=== PATIENT | male | born 1960 | race Caucasian/White ===

== ENCOUNTER 2019-07-16 07:44 | Inpatient (IN) ==
--- NOTE | 2019-07-16 08:27 | Emergency Department Note ---
Disposition Clinical Impression: Complete heart block Myocardial infarction Qualifiers: Myocardial infarction type: unspecified Involved coronary artery: unspecified coronary artery Qualified Code(s): I21.9 - Acute myocardial infarction, unspe cified Acute renal failure Qualifiers: Acute renal failure type: unspecified Qualified Code(s): N17.9 - Acute kidney failure, unspecified Disposition: Admitted As Inpatient Condition: Critical Time of Disposition: 10:05 Chest Pain HPI - General Chief Complaint: ED Chest Pain Stated Complaint: Chest Pain,"passing out" Time Seen by Provider: 07/16/19 07:48 Source: family Mode of arrival: private vehicle Limitations: no limitations Vital Signs Reviewed: Yes Nursing Notes Reviewed: Yes - History of Present Illness HPI Narrative: 58M with no chronic medical problems that takes no daily medications that reports chest pain since Saturday in the left side of his chest, and anjel upper chest, with radiation into his jaw. Pt has also reported multiple episodes of passing out since the pain started. He describes lightheadedness as well. He also endorses nausea and dry heaves. Pt reports that he did not seek care earlier because he had to work. Pt reports that he normally drinks 4-5 glasses of wine per night, but has not done so since Saturday when this all started. He also smokes a pack per day, but reports decrease in number of cigarettes secondary to symptoms. Severity scale (1-10): 7 - Related Data Allergies Allergy/AdvReac Type Severity Reaction Status Date / Time No Known Allergies Allergy Verified 07/16/19 08:06 Review of Systems: In addition to that documented in the HPI above, the additional ROS was obtained: Constitutional: Denies fevers Reports chills Eyes: Denies vision changes ENMT: Denies sore throat CV: Reports chest pain Resp: Reports SOB GI: Denies vomiting or diarrhea Reports nausea : Denies painful urination MSK: Denies recent trauma Skin: Denies new rashes Neuro: Denies new numbness or tingling Reports new weakness or lightheadedness Chest Pain PMH - Past Medical History Medical history: Reports: non-contributory Psychiatric history: Reports: no psych history - Social History Smoking Status: Current every day smoker Alcohol use: Reports: heavy Drug use: Reports: none Physical Exam General: A&O x 3. No acute distress. Appears uncomfortable. Well developed, well nourished. Lips are pale. Head: atraumatic, normocephalic. ENT: No conjunctival injection, no scleral icterus. PERRLA. EOMI. Oropharynx non- erythematous. mucous membranes moist. Neuro: No focal deficits, no speech deficit, no facial droop, mentating well. BUE/BLE Str 5/5. Pulm: Lungs CTAB A/P. No wheezes, rales, ronchi. Cardio: Bradycardic. Chest not tender to palpation. Abd: Soft, non-distended. Normoactive bowel sounds. Mildly tender to palpation diffusely. No guarding. Non rigid. Extremities: Radial pulses 2+ anjel, dorsalis pedis/posterior tibialis 1+ anjel. No LE edema. Skin: warm, dry, intact. No rashes. Psych: Appropriate mood and affect. Answers questions appropriately. Cooperative with exam. - General Limitations: no limitations General appearance: alert Course Vital Signs Temperature 98.7 F 07/16/19 07:59 Pulse Rate 33 07/16/19 07:59 Respiratory Rate 16 07/16/19 07:59 Blood Pressure 130/71 07/16/19 07:59 O2 Sat by Pulse Oximetry 99 07/16/19 07:59 Temperature 98.9 F 07/16/19 16:20 Pulse Rate 60 07/16/19 13:54 Respiratory Rate 19 07/16/19 13:54 Blood Pressure 117/73 07/16/19 13:54 O2 Sat by Pulse Oximetry 94 07/16/19 13:54 Oxygen Delivery Oxygen Delivery Room Air Chest Pain - [facility] Narrative Medical decision making narrative: 58M with no chronic medical conditions that takes no daily medications but does have 4-5 glasses of wine every day reports chest pain since Saturday with assoc iated nausea and lightheadedness. Initial EKG shows 3rd degree AV block. Cardiology was notified and they requested STAT echo, troponins, and electrolytes. Studies are pending. BP is stable at this time, pt has pads in placed and is connected to defibrillator. 1001: Troponin was elevated at 28.76 and cardiology was again notified. Right- sided EKG was performed which shows continued elevations in II, III, aVF. Cardiology will be evaluating the patient at the bedside. Cardiology evaluated the patient at the bedside and determined that he was a candidate for laboratory geneticist and took him emergently to the laboratory geneticist. He was closely monitored while he was in the department and had pacer pads in place if his vital signs were to change. The patient was informed of relative risks and benefits of the procedure and he gave written consent which was placed on the chart. - Medical Records Medical records reviewed: Yes I reviewed the patient's medical records. - Lab Data Lab results reviewed: Yes I reviewed the patient's lab results. Result diagrams: 07/16/19 08:45 07/16/19 08:45 Lab Results 07/16/19 07/16/19 07/16/19 Range/Units 08:45 08:45 08:45 WBC 11.8 H (4.3-11.1) K/mcL RBC 3.79 L (4.19-5.50) M/mcL Hgb 13.8 (12.9-16.9) g/dL Hct 41.6 (37.5-50.1) % MCV 109.8 H (83.0-100.0) fL MCH 36.4 H (28.0-33.3) pg MCHC 33.2 (31.6-35.5) g/dL RDW 13.7 (11.5-14.5) % Plt Count 163 (140-400) K/mcL MPV 10.8 (9.4-12.4) fL Immature Gran % 0.8 (0-4) % Seg Neutrophils % 72.2 % Lymphocytes % 16.0 % Monocytes % 10.7 % Eosinophils % 0.0 % Basophils % 0.3 % Neutrophils # 8.5 (1.6-8.9) K/mcL Lymphocytes # 1.9 (0.6-4.6) K/mcL Monocytes # 1.3 (0.0-1.3) K/mcL Eosinophils # 0.0 (0.0-0.6) K/mcL Basophils # 0.0 (0.0-0.2) K/mcL Sodium 138 (136-145) mEq/L Potassium 5.2 H (3.5-5.1) mEq/L Chloride 99 (98-107) mEq/L Carbon Dioxide 21 L (23-29) mEq/L BUN 25 H (6-20) mg/dL Creatinine 3.95 H (0.70-1.30) mg/dL Est GFR ( Amer) 19 L (> 60) Est GFR (Non-Af Amer) 16 L (> 60) BUN/Creatinine Ratio 6 (6-26) Glucose 138 H (70-105) mg/dL Calculated Osmolality 293 (280-300) Calcium 9.5 (8.6-10.3) mg/dL Magnesium 2.0 (1.6-2.6) mg/dL Troponin I 28.97 H* (< 0.04) ng/mL TSH 8.726 H (0.340-5.600) mcIU/mL Free T4 0.94 (0.70-2.00) ng/dl - Radiology Data Radiology results reviewed: Yes I reviewed the patient's radiology results. Chest X-Ray 07/16/19 08:28 IMPRESSION: Low lung volumes with bibasilar atelectasis. D/ / Florence Zelaya MD / Florence Zelaya MD Interpreting Provider: Florence Zelaya MD - EKG Data EKG attestation: Yes I reviewed and interpreted this EKG. EKG results narrative: 0754: Heart rate 33, rhythm bradycardic with third-degree AV block, axis normal. QRS 97, QTC 422. There is less than [address] elevation noted in lead 2, 3, aVF. There is constant intermittent ST depression of less than 1 mm in lead V1, and 2 mm in lead V2 with 1 mm in V3. There is no old EKG available for comparison. 0936: Right-sided EKG: HR 28, rhythm AV block with complete dissociation, axis normal. QRS 104, QTc 592 and prolonged. There is elevation in leads 2, 3, aVF. Hyperacute T waves are noted in lead V1. Heart Score - Score History: Highly Suspicious EKG: Significant ST-Depression Age: 45-65 Risk Factors: 1-2 risk factors Troponin: Greater than 3x normal limit HEART Score Total: 8
[2019-07-16 09:11] LABS: Basophils % 0.3 %; Hematocrit 41.6 % (37.5-50.1); Hemoglobin 13.8 g/dL (12.9-16.9); Immature Granulocytes % 0.8 % (0-4); Lymphocytes # 1.9 K/mcL (0.6-4.6); Mean Corpuscular HGB Conc 33.2 g/dL (31.6-35.5); Mean Corpuscular Hemoglobin 36.4 pg (28.0-33.3); Mean Corpuscular Volume 109.8 fL (83.0-100.0); Mean Platelet Volume 10.8 fL (9.4-12.4); Monocytes # 1.3 K/mcL (0.0-1.3); Monocytes % 10.7 %; Neutrophils # 8.5 K/mcL (1.6-8.9); Platelet Count 163 K/mcL (140-400); Red Blood Count 3.79 M/mcL (4.19-5.50); Red Cell Distribution Width 13.7 % (11.5-14.5); Segmented Neutrophils % 72.2 %; White Blood Count 11.8 K/mcL (4.3-11.1)
[2019-07-16 09:44] LABS: Thyroid Stimulating Hormone 8.726 mcIU/mL (0.340-5.600)
[2019-07-16 09:49] LABS: Calcium 9.5 mg/dL (8.6-10.3); Potassium 5.2 mEq/L (3.5-5.1); Troponin I 28.97 ng/mL (< 0.04)
--- NOTE | 2019-07-16 10:03 | Emergency Department Note ---
Disposition Clinical Impression: Complete heart block Myocardial infarction Qualifiers: Myocardial infarction type: unspecified Involved coronary artery: unspecified coronary artery Qualified Code(s): I21.9 - Acute myocardial infarction, unspe cified Acute renal failure Qualifiers: Acute renal failure type: unspecified Qualified Code(s): N17.9 - Acute kidney failure, unspecified Disposition: Admitted As Inpatient Condition: Critical Referrals: Jyoti Rosales [employer] [Advanced Practice Nurse] - Forms: ED Satisfaction Letter Time of Disposition: 10:04 General Adult HPI - General Chief complaint: ED Chest Pain Stated complaint: Chest Pain,"passing out" Time Seen by Provider: 07/16/19 07:48 Source: family Mode of arrival: private vehicle Limitations: no limitations - History of Present Illness Pain Scale: 6 - Related Data Allergies Allergy/AdvReac Type Severity Reaction Status Date / Time No Known Allergies Allergy Verified 07/16/19 08:06 Past Medical History - Past Medical History Medical history: Reports: non-contributory Psychiatric history: Reports: no psych history - Social History Smoking Status: Current every day smoker Smokeless Tobacco Status: No Alcohol use: Reports: heavy Drug use: Reports: none Physical Exam - General Limitations: no limitations General appearance: alert Course Vital Signs Temperature 98.7 F 07/16/19 07:59 Pulse Rate 33 07/16/19 07:59 Respiratory Rate 16 07/16/19 07:59 Blood Pressure 130/71 07/16/19 07:59 O2 Sat by Pulse Oximetry 99 07/16/19 07:59 Temperature 98.7 F 07/16/19 07:59 Pulse Rate 29 07/16/19 09:23 Respiratory Rate 18 07/16/19 09:23 Blood Pressure 103/64 07/16/19 09:23 O2 Sat by Pulse Oximetry 93 07/16/19 09:23 Oxygen Delivery Oxygen Delivery Room Air Medical Decision Making - Lab Data Result diagrams: 07/16/19 08:45 07/16/19 08:45 Lab Results 07/16/19 07/16/19 07/16/19 Range/Units 08:45 08:45 08:45 WBC 11.8 H (4.3-11.1) K/mcL RBC 3.79 L (4.19-5.50) M/mcL Hgb 13.8 (12.9-16.9) g/dL Hct 41.6 (37.5-50.1) % MCV 109.8 H (83.0-100.0) fL MCH 36.4 H (28.0-33.3) pg MCHC 33.2 (31.6-35.5) g/dL RDW 13.7 (11.5-14.5) % Plt Count 163 (140-400) K/mcL MPV 10.8 (9.4-12.4) fL Immature Gran % 0.8 (0-4) % Seg Neutrophils % 72.2 % Lymphocytes % 16.0 % Monocytes % 10.7 % Eosinophils % 0.0 % Basophils % 0.3 % Neutrophils # 8.5 (1.6-8.9) K/mcL Lymphocytes # 1.9 (0.6-4.6) K/mcL Monocytes # 1.3 (0.0-1.3) K/mcL Eosinophils # 0.0 (0.0-0.6) K/mcL Basophils # 0.0 (0.0-0.2) K/mcL Sodium 138 (136-145) mEq/L Potassium 5.2 H (3.5-5.1) mEq/L Chloride 99 (98-107) mEq/L Carbon Dioxide 21 L (23-29) mEq/L BUN 25 H (6-20) mg/dL Creatinine 3.95 H (0.70-1.30) mg/dL Est GFR ( Amer) 19 L (> 60) Est GFR (Non-Af Amer) 16 L (> 60) BUN/Creatinine Ratio 6 (6-26) Glucose 138 H (70-105) mg/dL Calculated Osmolality 293 (280-300) Calcium 9.5 (8.6-10.3) mg/dL Magnesium 2.0 (1.6-2.6) mg/dL Troponin I 28.97 H* (< 0.04) ng/mL TSH 8.726 H (0.340-5.600) mcIU/mL Attestation Statement - Attestation Attestation: I examined this patient and my medical decision-making was reviewed with the Resident Physician. I agree with the documented findings, disposition and treatment plan as described except to the extent set forth below. I was present for the resident's EKG interpretation. EKG shows complete heart block. There is borderline inferior elevation. This was discussed with supervisor endless track vehicle by Dr. Ames, who wanted to wait and see a troponin before deciding whether to take the patient to the Facilitator. He remained hemodynamic stable. Has had continuous chest pain for several days now. Troponin came back severely elevated. He has remained normotensive and continued to perfuse well in emergency department. Cardiology is been notified again, and is coming down and evaluate the patient in the ED. Magnesium is normal, metabolic panel shows acute renal failure with a creatinine 3.95 and very mild hyperkalemia potassium 5.2, almost certainly not the cause of his dysrhythmia. TSH just outside the normal range. Critical care time: I was directly and primarily involved in the care of this patient for 35 minutes excluding procedures.
[2019-07-16] MEDS ORDERED: 0.9 % Sodium Chloride 1,000 ML ONE (10:18)
[2019-07-16] MEDS ORDERED: *HR* Midazolam HCl 2 MG/2 ML VIAL ONE (10:26)
[2019-07-16] MEDS ORDERED: Iopamidol 125 ML INFUS..BTL ONE (10:27)
[2019-07-16] MEDS ORDERED: Nitroglycerin 1,000 MCG/10 ML VIAL IV ONE (10:27)
[2019-07-16] MEDS ORDERED: Heparin 1,000 UNITS/500 mL 500 ML ONE (10:27)
[2019-07-16] MEDS ORDERED: *HR* Heparin 10,000 UNIT/10 ML VIAL ONE (10:27)
[2019-07-16] MEDS ORDERED: *HR* FentaNYL (PF) 100 MCG/2 ML VIAL ONE (10:27)
--- NOTE | 2019-07-16 10:30 | Cardiology Consult Note ---
Date of Encounter: 07/16/19 Time of Encounter: 10:00 Assessment and Plan (1) STEMI (ST elevation myocardial infarction) Current Visit: Yes Status: Acute EKG reviewed with Dr. Tapia, meets inferior STEMI criteria. Troponin 28.97. Echo results pending. Pt states CP started on Saturday, was left sided and radiated to his jaw. Was near passing out on Saturday and ultimately did pass out today before coming to the ED. Denies known cardiac history, has not seen his doctor in over 3 years. PPD smoker, drinks 5+ glasses of wine per night. Will proceed with urgent LHC today. A/R/B discussed with patient and his brother, they are agreeable. Creat 3.95, IV fluids started. Risks of contrast induced nephropathy explained to pt and his brother. Qualifiers: Involved coronary artery: unspecified coronary artery Qualified Code(s): I21.3 - ST elevation (STEMI) myocardial infarction of unspecified site (2) Complete heart block Current Visit: Yes Status: Acute EKG displaying 3rd degree heart block in the setting of STEMI and TSH 8.7. Will consider EP eval after LHC. (3) TSH elevation Current Visit: Yes Status: Acute TSH 8.7. Denies history of thyroid disease. Hospitalist to manage. Discussion w patient/family: The assessment and plan as outlined above was discussed with the patient and/or family members who expressed understanding and agreement. All questions were answered. Thank you for involving us in the care of your patient. Please call with any questions. The above assessment and plan will be discussed with Dr. Tapia and I will make changes as necessary. History of Present Illness Consult date: 07/16/19 Consult reason: Complete heart block History of present illness: Mr. Sheridan is a 58M with no reported medical hx, takes no daily medications and has not seen his PCP in over three years. Reports CP since Saturday in the left side of his chest with radiation into his jaw. Pt has also reported multiple episodes of passing out since the pain started. He describes lightheadedness as well. Pt reports that he did not seek care earlier because he had to work. Pt reports that he normally drinks 4-5 glasses of wine per night, but brother at the bedside reports he actually drinks more. Also reports PPD smoker. Past Med Surg Social Fam HX - Past Medical History Medical history: non-contributory Psychiatric history: no psych history - Past Surgical History Additional surgical history: Thumb sx - Social History Smoking Status: Current every day smoker Smokeless Tobacco Status: No Alcohol use: heavy Drug use: none Medications and Allergies Allergy/AdvReac Type Severity Reaction Status Date / Time No Known Allergies Allergy Verified 07/16/19 08:06 All Systems Review: The remainder of the systems were reviewed and are negative - Cardiovascular Cardiovascular: as per HPI Physical Examination Vital Signs, Last 4 Hours Temp Pulse Resp BP Pulse Ox 07/16/19 09:23 29 18 103/64 93 07/16/19 09:00 30 18 100/58 95 07/16/19 08:15 34 18 121/64 98 07/16/19 08:00 33 18 127/66 98 07/16/19 07:59 98.7 F 33 16 130/71 99 General: Conversant, No Apparent Distress Cardiac: Other (bradycardia ) Lungs: Normal Breath Sounds Neuro: Alert and responsive, No focal deficits noted Results 07/16/19 08:45 07/16/19 08:45 Lab Results 07/16/19 07/16/19 07/16/19 08:45 08:45 08:45 WBC 11.8 H Hgb 13.8 Hct 41.6 Plt Count 163 Sodium 138 Potassium 5.2 H Chloride 99 Carbon Dioxide 21 L BUN 25 H Creatinine 3.95 H Glucose 138 H Calcium 9.5 Magnesium 2.0 Troponin I 28.97 H* TSH 8.726 H - Imaging and Cardiology Echo: pending - EKG Interpretation EKG results cardiology: personally reviewed (3rd degree heart block, meets inferioir STEMI criteria) Consult Discharge Plan - Plan Referrals: NONE,PCP [Primary Care Provider] - HAS-BLED Score - Score Abnormal renal function: Dialysis, Transplant, or CR>2.26 mg/dl Prior alcohol or drug usage history: Greater than or equal to 8 drinks/week Score: 2 Cardiac Rehab - Cardiac Rehab Cardiac Rehab: Phase I consult completed. Patient was educated on why Cardiac Rehabilitation is beneficial to his/her health. Participating in a cardiac rehabilitation can improve the following: strengthen your heart, improve ejection fraction, weight reduction, decrease cholesterol levels, lower blood pressure, lower blood sugar, improve stamina, and enhance self-image. If he/she has any questions, they were instructed to call [facility] at [phone].
[2019-07-16] MEDS ORDERED: *HR* Atropine Sulfate 1 MG/10 ML SYRINGE ONE (10:44)
--- NOTE | 2019-07-16 11:11 | Pre-Sedation Evaluation ---
Pre-sedation evaluation - Pre-sedation checklist Date of procedure: 07/16/19 Procedure: urgent cath Recent Vitals: Last Vital Signs Temp 98.7 F 07/16/19 07:59 Pulse 29 07/16/19 09:23 Resp 18 07/16/19 10:41 BP 117/52 07/16/19 10:41 Pulse Ox 93 07/16/19 09:23 H&P (including ROS) documented in medical record: Yes Previous reaction to sedatives/anesthetics: No Dietary Status: NPO 6 hours prior to procedure Airway Assessment: Patient can open mouth completely, TMJ function normal Possible difficult airway: No ASA Classification *see protocol: CLASS II-Mild systemic disease Plan of Care: Pt appropriate candidate for procedure/moderate/conscious sedation Cardiac Registry (Cardio Only) - Functional Capacity Functional Capacity: < 4 METS - Clincal Frailty Scale Clinical Frailty Scale: Vulnerable
--- NOTE | 2019-07-16 11:13 | Event Note ---
Date of Encounter: 07/16/19 Time of Encounter: 11:11 - Cardiology Event Note Emergent cath for unstable cardiac sxs of syncope, +trops and chest pain. EKG showed CHB. Cath RCA distal 100%, no collaterals LCA mild disease LVEF 45% with inferior akinesis. Recommend management of medical issues permanent pacer.
--- NOTE | 2019-07-16 11:31 | Invasive Diagnostic Lab Proc ---
Name: Clayton Sheridan Date of Study: 07/16/2019 Date: 1960 Ht: 68.9in Medical Record#: [id number] Age: 58 Wt: 195.77lb Gender: Male BSA: 2.04 Order #: [id number] BMI: 29 Physicians Procedure Physician: Julian Marsh MD Referring MD: Referring MD: Staff Name Position Time In Hina Portillo RN Monitor 10:37 AM Jc Weaver RN Plating Tank Operator Apprentice 10:37 AM Yamilet Moss RT (R) Scrub 10:37 AM Israel Elicia RT (R) Scrub 10:37 AM Brice Estevez RN Nurse 10:42 AM Procedures Performed Procedure L HRT ARTERY/VENTRICLE ANGIO INS/RPL TEMP PM LEAD/CATH;SNGL Pre-Procedure Checklist Pt not NPO for procedure and MD aware. Blood Pressure: 103/64 Plan of Care Patient will tolerate the procedure without complications. Adequate level of comfort will be maintained. Hemodynamics will remain stable Patient will recover from procedure without complications. Respiratory function will be maintained. Cardiac rhythm will remain stable. Patient temperature will be maintained. Patient and/or family have verbalized understanding of the procedure. Patient Education Intravenous Access Time IV Size Location DC'd Fluid/Drip Rate Units RN 10:37 AM 18g 1 1/4" Patent On Arrival Rt Antecubital 10:37 AM 18g 1 1/4" Patent On Arrival Lt Antecubital Allergies No Known Allergies Vital Signs Time BP (mmHg) HR (bpm) O2 Sat. RR (bpm) LOC 10:37 AM 103 / 64 29 93 % 18 5 = Fully awake and oriented or at pre-proc level 10:42 AM / % 5 = Fully awake and oriented or at pre-proc level 10:42 AM / % 4 = Oriented but drowsy 10:47 AM 122 / 61 31 92 % 15 10:52 AM 113 / 57 31 96 % 25 10:56 AM 119 / 73 136 98 % 35 11:02 AM 126 / 71 76 99 % 19 11:07 AM 116 / 67 60 99 % 17 10:57 AM / % 4 = Oriented but drowsy Procedural Medications Time Medication Dose Units Method Given By 10:42 AM Oxygen 2 L/min nasal cannula cJ Weaver RN 10:45 AM Versed 2 mg Intravenous Jc Weaver RN 10:45 AM Fentanyl 50 mcg Intravenous Jc Weaver RN 10:49 AM Lidocaine 2% 10 ml Subcutaneous Julian Marsh MD ASA Classification: Emergent Procedure: ASA score is assumed Abigail Score Preprocedure Postprocedure Activity 2- Moves 4 extremities sustained head lift Activity 2- Moves 4 extremities sustained head lift Circulation 2- SBP +/= 20 points of pre-anesthetic level Circulation 2- SBP +/= 20 points of pre-anesthetic level Consciousness 2- Awake and alert oriented x 3 Consciousness 2- Awake and alert oriented x 3 O2 Saturation 2- Able to maintain O2 satruation of 92% on room air O2 Saturation 2- Able to maintain O2 satruation of 92% on room air Respiratory 2- Able to deep breathe and cough well Respiratory 2- Able to deep breathe and cough well Total Score 10 Total Score 10 Contrast Agent: Isovue Diagnostic Contrast: 75 ml Total Contrast: 75 ml Fluoro Dose: 17 mGy Procedure Log Time Note Enter By 10:37 AM Hina Portillo RN Position: Monitor [facility] in: 10:37 [facility] 10:37 AM Jc Weaver RN Position: Plating Tank Operator Apprentice Time in: 10:37 [facility] 10:37 AM Yamilet Moss RT (R) Position: Scrub Time in: 10:37 [facility] 10:37 AM Elicia Wood RT (R) Position: Scrub Time in: 10:37 tsmmers 10:42 AM Pt arrived to [facility] 2 at 10:42 mmers 10:42 AM Brice Estevez RN Position: Nurse Time in: 10:42 [facility] 10:42 AM Physician arrived 10:42 [facility] 10:42 AM Meet and greet completed [facility] 10:42 AM Time: 10:42 Patient comfortable and pain free: Yes [email or web address] 10:42 AM Time: 10:42LOC: 5 = Fully awake and oriented or at pre-proc level [email or web address] 10:42 AM Time: 10:42 Oxygen on at 2 L/min per nasal cannula by Jc Weaver RN [facility] 10:43 AM Sign in performed according to hospital policy. Informed consent was obtained. tsoummers 10:43 AM CathStat 10:44 AM Procedure start 10:44 [facility] 10:44 AM Hair removed from procedure site in procedure lab using clippers. Bilateral groin prepped with Chloraprep by Elicia Wood (R), then patient was draped. Skin intact. mm 10:45 AM Time: 10:45 Versed 2 mg Intravenous Given by Jc Weaver RN [facility] 10:45 AM Time: 10:45 Fentanyl 50 mcg Intravenous Given by Jc Weaver RN [facility] 10:46 AM Vitals capture started with the following parameters, Patient=Adult, Interval=5 min, Initial Arltsvmq=996 mmHg, Deflation Rate=3 mmHg, Cuff placed on Right Arm 10:46 AM Recorded ECG: HR=31 Condition=Condition 1 10:47 AM HR=31 bpm, PGVC=711/61 mmhg, SpO2=92.0 %, Resp=15 B/min 10:48 AM Recorded ECG: HR=32 Condition=Condition 1 10:48 AM Time out was performed according to hospital policy. Conscious sedation and anesthesia was achieved (see medication log with in this report above) 10:50 AM Time: 10:49 10 ml Lidocaine 2% to right groin Subcutaneous Given by Julian Marsh MD 10:50 AM Pressure channel 2 zeroed. 10:50 AM Access obtained by percutaneous puncture. 6Fr 11cm Cordis Allyson sheath placed in right Femoral vein. [id number] oumm 10:51 AM Access obtained by percutaneous puncture. 6Fr 10cm Terumo Roark sheath placed in right Femoral artery. [id number] mm 10:52 AM HR=31 bpm, YDOV=860/57 mmhg, SpO2=96.0 %, Resp=25 B/min 10:53 AM PstProc:Bard Bipolar Pacing Catheter Temp pacer inserted into right femoral vein oumm 10:54 AM PstProc: Temp pacer on. tsoumm 10:54 AM PstProc: Temp pacer turned on, rate 60 ppm, 3mA , sensitivity 0.2 10:55 AM NIBP STAT measurement started. 10:55 AM 6Fr FR 4 catheter inserted over the wire DNC 10:55 AM 0.035 145cm Navilyst 3mmJ wire [id number] tsoummers 10:55 AM wire removed tsoummers 10:56 AM Pressure channel 2 zeroed. 10:56 AM JT=039 bpm, QVFJ=854/73 mmhg, SpO2=98.0 %, Resp=35 B/min 10:56 AM RCA angiography performed in multiple views. [email or web address] 10:56 AM Recorded Pressure: Ao, HR=60, Condition=Condition 1 (Aorta) Ao 94/54/71 10:57 AM Catheter removed tsoummers 10:57 AM 6Fr FL 4 catheter inserted over the wire [facility] tsoummers 10:57 AM Time: 10:42LOC: 4 = Oriented but drowsy tsoummers 10:58 AM Time: 10:43 Patient comfortable and pain free: Yes tsoummers 10:58 AM LCA angiography performed in multiple views. tsoummers 10:58 AM Recorded Pressure: Ao, HR=73, Condition=Condition 1 (Aorta) Ao 90/50/67 10:58 AM Recorded Pressure: Ao, HR=60, Condition=Condition 1 (Aorta) Ao 92/51/68 10:59 AM Catheter removed [facility] 11:00 AM Recorded Pressure: Ao, HR=60, Condition=Condition 1 (Aorta) Ao 96/11/39 11:00 AM Recorded Pressure: LV, HR=60, Condition=Condition 1 (Left Ventricle) LV 97/11/22 11:01 AM 5Fr Pigtail catheter inserted over the wire [facility] 11:01 AM Catheter crossed the aortic valve and was selectively placed in the left ventricle. Pressures recorded on pullback for left heart catheterization. tsoummers 11:01 AM Recorded Pressure: LV, Ao, HR=60, Condition=Condition 1 (Left Ventricle) LV 91/-2/15, (Aorta) Ao 92/49/67 11:01 AM Bolus angiogram of left Ventricle complete: hand injection tsoummers 11:01 AM [facility]ter [facility] 11:02 AM HR=76 bpm, MHVB=048/71 mmhg, SpO2=99.0 %, Resp=19 B/min, Comment=paced 11:02 AM Bolus angiogram of right Femoral complete: hand injection tsoummers 11:02 AM Procedure completed at 11:02 07/16/2019 tsmmers 11:03 AM Did you address AMY flow and Dominance? YesCoronary Dominance: right tsoummers 11:04 AM Sign out completed: Radiation Dose 184.62 mGy, 17.4 Gy/cm2 Fluoro Time: 1.2 Isovue 370 - 200ml contrast 75 ml given by Julian Marsh MD. Complications: None. 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 Sedation minutes 19. Cardiac Rehab Consult needed: Yes. Confirmed administered medications: Yes tsoummers 11:04 AM Isovue 370 - 200ml,1 Bottle(s) used. tsoummers 11:05 AM Arterial sheath pulled, Perclose closure device used and was Successful [id number] S/N. tsoummers 11:05 AM Estimated Blood Loss: minimal tsoummers 11:05 AM Post ECG Paced tsoummers 11:05 AM Post Blood Pressure 126/71 tsoummers 11:05 AM Information taught Cardiac Cath, PCI, Perclose, and Temporary pacemaker tsoummers 11:05 AM Education needs Procedure, Plan of Care, and Responsibilities of Patient in Care tsoummers 11:05 AM Learning barriers :None tsmmers 11:05 AM Education Methods Verbal [facility] 11:06 AM Education evaluation Able to repeat information [facility] 11:06 AM Site status No bleeding/ No Hematoma - Rt & lt Groin as reported by Yamilet Moss RT (R) at 11:06 tsoummers 11:06 AM Opsite applied tsoummers 11:06 AM Plavix, Effient or Brilinta given No tsoummers 11:06 AM Delay to floor No tsoummers 11:07 AM HR=60 bpm, SXHT=878/67 mmhg, SpO2=99.0 %, Resp=17 B/min 11:07 AM PstProc: Sheath(s) sutured in due to Temporary Pacer. tsoummers 11:12 AM Time: 10:57LOC: 4 = Oriented but drowsy tsoummers 11:16 AM Patient out of room: 11:16 tsoummers 11:16 AM Lesion found in Distal RCA. Pre Stenosis: 100 Pre AMY Flow: 0: No Flow/No perfusion tsoummers 11:16 AM Lesion found in Mid LAD. Pre Stenosis: 15 Pre AMY Flow: tsoummers 11:16 AM Lesion found in Distal LAD. Pre Stenosis: 15 Pre AMY Flow: tsoummers 11:16 AM Lesion found in Mid Circumflex. Pre Stenosis: 20 Pre AMY Flow: stephanieounataly 11:18 AM Report given to Cami OCHOA Pt taken to Holding room Room #11. 11:17 antonietta Complications Complication None Hemodynamics Pressures Site Systolic/A Wave Diastolic/V Wave Mean AO 94 54 71 AO 90 50 67 AO 92 51 68 AO 96 11 39 LV 97 11 22 LV 91 -2 15 AO 92 49 67 Post Procedure Information Blood Pressure: 126/71 mmHg Rhythm: Paced Post procedural instructions were given Closure Device Time Device Success/Fail 07/16/2019 11:06:00 AM Perclose ProGlide Successful Site Checks Time Location Status Staff Sheath In? Note 11:06 AM Rt & lt Groin No bleeding/ No Hematoma Yamilet Moss RT (R) Pulses Updated by Hina Portillo RN on 07/16/2019 11:21:27 AM electronically signed on 07/16/2019 11:21:45 AM with status of Final
--- NOTE | 2019-07-16 12:48 | Electrophysiology Consult Note ---
<Travis Orellana R - Last Filed: 07/16/19 12:49> Date of Encounter: 07/16/19 Time of Encounter: 12:46 Assessment and Plan (1) Complete heart block Status: Acute ECG with complete heart block in setting of acute renal failure, creatinine 3.95, hyperkalemia K 5.2, hypothyroidism TSH 8.726. Consider endocrinology eval for TSH. CP since Saturday with radiation into his jaw. Reports lightheadedness and multiple syncopal episodes since Saturday. ECG also met STEMI criteria and troponin 28.97. Pt taken urgently to cardiac cath lab radiology technologist, distal 100% RCA stenosis. No intervention. Temporary pacer inserted while in cardiac cath lab radiology technologist. TTE High degree AVB. BP 103/64 mmHg. LVEF 55%. Normal RV structure and function. Mild MR. Mild TR. Mild SD. Moderate phtn. Discussed and reviewed with Dr. Alessio Moya. Recommend correcting acute underlying issues. Possible PPM insertion on Friday 07/20 pending clinical course. Discussion w patient/family: The assessment and plan as outlined above was discussed with the patient and/or family members who expressed understanding and agreement. All questions were answered. Thank you for involving us in the care of your patient. Please call with any questions. I will discuss all the above with Dr. Alessio Moya and make changes as necessary. History of Present Illness Consult date: 07/16/19 Requesting physician: Maribel Irvin Consult reason: complete heart block Chief complaint: chest pain History of present illness: Mr. Sheridan is a 58 year old male with PMH of tobacco and ETOH use, takes no daily medications and has not seen his PCP in over three years. Reports left sided CP since Saturday with radiation into his jaw. Reports lightheadedness and multiple syncopal episodes since Saturday. Reports he normally drinks 4-5 glasses of wine per night, but brother at bedside reports he drinks more. ECG with complete heart block, but also met STEMI criteria and troponin 28.97. Pt taken urgently to cardiac cath lab radiology technologist, distal 100% RCA stenosis. No intervention. Temporary pacer inserted. EP consulted for further recs. K 5.2 TSH 8.726. Creatinine 3.95. TTE High degree AVB. BP 103/64 mmHg. LVEF 55%. Normal RV structure and function. Mild MR. Mild TR. Mild SD. Moderate phtn. Past Med Surg Social Fam HX - Past Medical History Medical history: non-contributory Psychiatric history: no psych history - Past Surgical History Additional surgical history: Thumb sx - Social History Smoking Status: Current every day smoker Smokeless Tobacco Status: No Alcohol use: heavy Drug use: none Medications and Allergies Allergy/AdvReac Type Severity Reaction Status Date / Time No Known Allergies Allergy Verified 07/16/19 22:26 All Systems Review: The remainder of the systems were reviewed and are negative - Cardiovascular Cardiovascular: as per HPI, chest pain at rest, chest pain with exertion, lightheadedness, syncope Physical Examination Vital Signs, Last 4 Hours Temp Pulse Resp BP Pulse Ox 07/16/19 11:54 98.6 F 60 18 100/68 96 07/16/19 10:41 18 117/52 07/16/19 09:23 29 18 103/64 93 07/16/19 09:00 30 18 100/58 95 Vital Signs Temp Pulse Resp BP Pulse Ox 07/16/19 11:54 98.6 F 60 18 100/68 96 07/16/19 10:41 18 117/52 07/16/19 09:23 29 18 103/64 93 07/16/19 09:00 30 18 100/58 95 07/16/19 08:15 34 18 121/64 98 07/16/19 08:00 33 18 127/66 98 07/16/19 07:59 98.7 F 33 16 130/71 99 Intake and Output 07/15/19 07/16/19 07/16/19 23:59 07:59 15:59 Intake Total 100 / 100 Balance 100 / 100 Intake: Oral 100 / 100 Other: Weight 88.813 kg Patient Weight 07/16/19 23:59 Weight 88.813 kg General: Conversant HEENT: Atraumatic, Normocephaly, Mucus Membranes Moist Neck: No JVD Cardiac: Reg Rate and Rhythm, Normal S1 and S2, No Murmur Lungs: Normal Breath Sounds, No Wheeze, Rales, Rhonchi Neuro: Alert and responsive, No focal deficits noted Abdomen: Soft, Non-Tender Skin: No rashes noted on visualized skin Musculoskeletal: No Chest Wall Tenderness Extremities: No Clubbing, No Cyanosis, No Edema, Normal Pulses Results 07/16/19 08:45 07/16/19 08:45 Lab Results 07/16/19 07/16/19 07/16/19 08:45 08:45 08:45 WBC 11.8 H Hgb 13.8 Hct 41.6 Plt Count 163 Sodium 138 Potassium 5.2 H Chloride 99 Carbon Dioxide 21 L BUN 25 H Creatinine 3.95 H Glucose 138 H Calcium 9.5 Magnesium 2.0 Troponin I 28.97 H* TSH 8.726 H Short CBC 07/16/19 Range/Units 08:45 WBC 11.8 H (4.3-11.1) K/mcL Hgb 13.8 (12.9-16.9) g/dL Hct 41.6 (37.5-50.1) % Plt Count 163 (140-400) K/mcL Neutrophils # 8.5 (1.6-8.9) K/mcL BMP 07/16/19 Range/Units 08:45 Sodium 138 (136-145) mEq/L Potassium 5.2 H (3.5-5.1) mEq/L Chloride 99 (98-107) mEq/L Carbon Dioxide 21 L (23-29) mEq/L BUN 25 H (6-20) mg/dL Creatinine 3.95 H (0.70-1.30) mg/dL Glucose 138 H (70-105) mg/dL Calcium 9.5 (8.6-10.3) mg/dL Cardiac Enzymes 07/16/19 Range/Units 08:45 Troponin I 28.97 H* (< 0.04) ng/mL Impressions Chest X-Ray 07/16/19 08:28 IMPRESSION: Low lung volumes with bibasilar atelectasis. D/ / Florence Zelaya MD / Florence Zelaya MD Interpreting Provider: Florence Zelaya MD Echocardiogram 07/16/19 09:56 Impressions: High degree AVB. BP 103/64 mmHg LVEF 55%. Normal right ventricular structure and function. Mild mitral regurgitation. Mild tricuspid regurgitation. Mild pulmonic regurgitation. Moderate pulmonary hypertension. Left Ventricular Wall Motion: Rest Echo Findings All wall segments showed normal motion. Findings: Study Quality * Technically adequate exam. ECG Findings * High degree AVB. Left Ventricle * LVEF 55%. * Indeterminate diastolic function. * LV chamber size and wall thickness are normal. Right Ventricle * Normal right ventricular structure and function. Left Atrium * Mildly dilated left atrium. Right Atrium * Normal right atrial size. Aortic Valve * Trace aortic regurgitation. * Trileaflet aortic valve. * No aortic stenosis. Mitral Valve * Mild mitral regurgitation. * No mitral stenosis. * Normal mitral valve structure. Tricuspid Valve * Normal tricuspid valve structure. * Mild tricuspid regurgitation. * Estimated RA pressure is 20 mmHg. * Estimated RVSP is 56 mmHg. * Moderate pulmonary hypertension. Pulmonic Valve * Pulmonic valve is not well visualized. * No pulmonic stenosis. * Mild pulmonic regurgitation. Pulmonary Artery * Pulmonary artery not well visualized. Aorta * Normally sized aortic root. Pericardium * There is no pericardial effusion present. Interatrial Septum * No evidence of PFO by color Doppler. IVC * The IVC is dilated. * < 50% respiratory change. Active Medications Acetaminophen (Tylenol) 650 mg PO Q6HR PRN PRN Reason: Mild Pain Stop: 01/15/20 11:14 Aspirin (Aspirin) 81 mg PO DAILY [facility] Stop: 01/16/20 09:01 Atorvastatin Calcium (Lipitor) 80 mg PO HS [facility] Stop: 01/15/20 21:01 Clopidogrel Bisulfate (Plavix) 75 mg PO DAILY [facility] Stop: 01/16/20 09:01 Sodium Chloride (0.9 % Sodium Chloride) 1,000 mls @ 125 mls/hr IVC .Q8H [facility] Stop: 01/15/20 10:31 - Imaging and Cardiology Echo: report reviewed Cardiac cath: report reviewed - EKG Interpretation EKG results cardiology: personally reviewed (Complete heart block, ST elevation) Consult Discharge Plan - Plan Instructions: Metoprolol (By mouth), Levothyroxine (By mouth), Cyclobenzaprine (By mouth), Aspirin (By mouth), Isosorbide Mononitrate (By mouth), Atorvastatin (By mouth), Clopidogrel (By mouth), Heart Failure (DC), Acute Kidney Injury (DC) Additional Instructions: ACTIVITY: Moderate activity for the next 7 days. No lifting more than 5 pounds (gallon of milk) for 4-6 weeks. Avoid lifting your arm on the same side as the device for 4 weeks. BATHING /SHOWERING: Do not remove the large bandage over the site for 2 days. Do not allow the device to get wet for 7-10 days. You may bathe/shower, but do not use soap and water on the site. When bathing, keep the site dry by covering with Saran wrap or a towel. WOUND CARE: The white steri-strips will start to peel away and come off after 14 days, or your doctor will remove them after [address] into or on top of the incision. Do not use cotton swabs. Do not use any antibiotic ointment or Vitamin E on the site. REMINDERS: You may use electrical devices, such as, microwaves, hair dryers, electric razors, electric blankets, etc. as long as they are in good condition and kept 6-8 inches away from the device. It is recommended to use cell phones on the opposite side of your device. Notify security personnel at the airport that you have a device before you go through airport security screening. When at places with security monitors, such as a grocery store, do not linger near these monitors. It is fine to walk past them in a normal manner. Refer to your owners manual for more specific directions. CARRY YOUR PACEMAKER/ICD CARD WITH YOU AT ALL TIMES Return to work as instructed per physician Resume driving as instructed per physician Keep all scheduled follow up appointments Resume medications as instructed Contact [facility] ( ) if: You develop excessive bleeding from insertion or wound site not controlled by applying pressure You develop a fever greater than 101 degrees Fahrenheit Your incision becomes reddened at or around the site Your incision develops yellowish or greenish drainage or development of white pimple-like bumps You experience excessive pain You develop swelling in your ankles You experience muscle switching You develop excessive hiccupping If you experience chest pain, shortness of breath, dizziness, or extreme tiredness, stop the activity and rest. Please notify [facility] office if you experience any of these symptoms and they are not relieved by rest please call 911! Referrals: [facility] [Other] (Referral made physicians office will call the patient to schedule a follow-up appointment. ) Wilberto Gutierrez CNP [Advanced Practice Nurse] - Chris Londono DO [Partnered Physician] - (Referral made, physicians office will call the patient to schedule a follow-up appointment.) Prescriptions: Aspirin 81 mg PO DAILY #60 tab.chew Prescription Printed Cyclobenzaprine [Flexeril] 10 mg PO TID #20 tablet Prescription Printed Isosorbide MONOnitrate (24 HR) [Imdur] 30 mg PO DAILY #90 tab.er.24h Prescription Printed Atorvastatin [Lipitor] 80 mg PO HS #90 tablet Prescription Printed Metoprolol [Lopressor] 25 mg PO BID #90 tablet Prescription Printed Clopidogrel [Plavix] 75 mg PO DAILY #60 tablet Prescription Printed Levothyroxine [Synthroid] 50 mcg PO 0630 #60 tablet Prescription Printed Cardiac Rehab - Cardiac Rehab Cardiac Rehab: Phase I consult completed. Patient was educated on why Cardiac Rehabilitation is beneficial to his/her health. Participating in a cardiac rehabilitation can improve the following: strengthen your heart, improve ejection fraction, weight reduction, decrease cholesterol levels, lower blood pressure, lower blood sugar, improve stamina, and enhance self-image. If he/she has any questions, they were instructed to call [facility] at [phone]. <Alessio Moya - Last Filed: 07/23/19 14:13> Date of Encounter: 07/23/19 - Attending Attestation I have personally performed a face to face evaluation on this patient. I have reviewed and agree with the care plan. History and Exam by me shows: Subacute presentation of inferior STEMI complicated by complete heart block. Temporary wire placed, if does not resolve will need permanent pacemaker. Assessment and Plan Discussion w patient/family: The assessment and plan as outlined above was discussed with the patient and/or family members who expressed understanding and agreement. All questions were answered. Thank you for involving us in the care of your patient. Please call with any questions. History of Present Illness History of present illness: Mr. Sheridan is a 58 year old male All Systems Review: The remainder of the systems were reviewed and are negative Results 07/21/19 05:49 07/21/19 05:49 Cardiac Rehab - Cardiac Rehab Cardiac Rehab: Phase I consult completed. Patient was educated on why Cardiac Rehabilitation is beneficial to his/her health. Participating in a cardiac rehabilitation can improve the following: strengthen your heart, improve ejection fraction, weight reduction, decrease cholesterol levels, lower blood pressure, lower blood sugar, improve stamina, and enhance self-image. If he/she has any questions, they were instructed to call [facility] at [phone].
--- NOTE | 2019-07-16 12:52 | Internal Med History&Physical ---
Date of Encounter: 07/16/19 Time of Encounter: 12:47 Internal Medicine - H&P: HPI Chief complaint: Weakness, lightheadedness Admitted From: Intrahospital Transfer Plans for Post Hospital Care: Home History of present illness: Mr. Sheridan is a 58 year old male who has a past medical history significant for heavy tobacco abuse, 2 packs per day for the last 40 years, and daily alcohol use of 58 ounce glasses of wine daily. History of withdrawals. Patient was admitted for evaluation of chest pain for the last several days, described as pleuritic in nature, left side of his chest radiating into the jaw. He also had numerous episodes of lightheadedness and passing out since that time. Pt was dosed with inferior wall ST elevation [place], with a troponin of 28.97. He also was noted to have complete heart block. Patient underwent left heart catheterization which showed a 100% distally occluded RCA with no collaterals, mid disease in the left coronary artery, EF of 45% with inferior wall hypokinesis. Recommendation was for medical management of his coronary artery disease, he also had a temporary pacemaker placed through his right groin. Patient is now transferred to ICU for further monitoring and management. Patient currently remains hemodynamically stable, heart rate of 60, paced. Patient is still having some mild chest discomfort which he describes as pleuritic in nature versus been present for several days. He denies any shortness of breath. No fevers or chills. No nausea, vomiting, diarrhea. Yeison momin states his last alcoholic beverage was Saturday night. He has not had any symptoms of withdrawal. Other than that mentioned above, a 10 point review of systems is negative. Past Med Surg Social Fam HX - Past Medical History Medical history: non-contributory Psychiatric history: no psych history - Past Surgical History Surgical History: pacemaker Additional surgical history: Thumb sx - Social History Smoking Status: Current every day smoker Smokeless Tobacco Status: No Alcohol use: heavy Drug use: none Occupational status: employed Current living situation: Home Activity Level: Independent ambulation Recent Out of Country Travel Within the Last 8 Weeks: No Exposure or Possible Exposure to Illness During Travel: No Internal Medicine - H&P: Meds Allergy/AdvReac Type Severity Reaction Status Date / Time No Known Allergies Allergy Verified 07/16/19 08:06 All Systems PM: A 10-system review of systems was performed and is negative for pertinent findings except as documented above in the HPI. - Constitutional Vitals: Temp Pulse Resp BP Pulse Ox 98.6 F 60 18 100/68 96 07/16/19 11:54 07/16/19 11:54 07/16/19 11:54 07/16/19 11:54 07/16/19 11:54 General appearance: Present: A&O X 3, pleasant, no acute distress (Patient has a temporary pacemaker inserted into his right groin) Exam: nontoxic - Head Head exam: Present: atraumatic, normocephalic - Eye Eye exam: Present: PERRL, conjuntiva pink, sclera anicteric Pupils: Present: PERRL - Neck Neck exam general surgery: Present: supple, trachea midline. Absent: lymphadenopathy - Respiratory Respiratory exam: Present: CTAB. Absent: accessory muscle use, rales, rhonchi, wheezes - Cardiovascular Cardiovascular exam: Present: RRR, +S1, +S2. Absent: diastolic murmur, gallop, rubs, systolic murmur - GI/Abdominal GI/Abdominal exam: Present: normal bowel sounds, soft, no peritoneal signs. Absent: distended, tenderness - Extremities Exam Extremities exam: Present: warm, radial pulses palpable and symmetrical. Absent: calf tenderness, cyanotic, pedal edema - Neurological Exam Neurological exam: Present: CN II-XII intact, oriented X3, no focal deficits. Absent: pronater drift, facial droop, speech deficit - Skin Skin exam: Present: dry, intact Internal Med - H&P Results - Labs CBC & Chem 7: 07/16/19 08:45 07/16/19 08:45 Labs: Short CBC 07/16/19 Range/Units 08:45 WBC 11.8 H (4.3-11.1) K/mcL Hgb 13.8 (12.9-16.9) g/dL Hct 41.6 (37.5-50.1) % Plt Count 163 (140-400) K/mcL Neutrophils # 8.5 (1.6-8.9) K/mcL BMP 07/16/19 08:45 Sodium 138 Potassium 5.2 H Chloride 99 Carbon Dioxide 21 L BUN 25 H Creatinine 3.95 H Glucose 138 H Calcium 9.5 Cardiac Enzymes 07/16/19 Range/Units 08:45 Troponin I 28.97 H* (< 0.04) ng/mL - Impressions ITS Impressions Chest X-Ray 07/16/19 08:28 IMPRESSION: Low lung volumes with bibasilar atelectasis. D/ / Florence Zelaya MD / Florence Zelaya MD Interpreting Provider: Florence Zelaya MD Echocardiogram 07/16/19 09:56 Impressions: High degree AVB. BP 103/64 mmHg LVEF 55%. Normal right ventricular structure and function. Mild mitral regurgitation. Mild tricuspid regurgitation. Mild pulmonic regurgitation. Moderate pulmonary hypertension. Left Ventricular Wall Motion: Rest Echo Findings All wall segments showed normal motion. Findings: Study Quality * Technically adequate exam. ECG Findings * High degree AVB. Left Ventricle * LVEF 55%. * Indeterminate diastolic function. * LV chamber size and wall thickness are normal. Right Ventricle * Normal right ventricular structure and function. Left Atrium * Mildly dilated left atrium. Right Atrium * Normal right atrial size. Aortic Valve * Trace aortic regurgitation. * Trileaflet aortic valve. * No aortic stenosis. Mitral Valve * Mild mitral regurgitation. * No mitral stenosis. * Normal mitral valve structure. Tricuspid Valve * Normal tricuspid valve structure. * Mild tricuspid regurgitation. * Estimated RA pressure is 20 mmHg. * Estimated RVSP is 56 mmHg. * Moderate pulmonary hypertension. Pulmonic Valve * Pulmonic valve is not well visualized. * No pulmonic stenosis. * Mild pulmonic regurgitation. Pulmonary Artery * Pulmonary artery not well visualized. Aorta * Normally sized aortic root. Pericardium * There is no pericardial effusion present. Interatrial Septum * No evidence of PFO by color Doppler. IVC * The IVC is dilated. * < 50% respiratory change. - Summary of Assessment and Plan Summary of Assessment and Plan: Inferior wall ST elevation [place] -Management as per cardiology -Patient is on statin, aspirin, Plavix -check AM Lipid panel Chest Pain -likely due to IWMI -Well's score argues against PE Complete heart block -s/p temp pacemaker -Management as per cardiology Tobacco abuse -prenatal genetic counselor Chronic daily alcohol use -Last drink was 4 nights ago, no withdrawal symptoms -I will allow patient to drink alcohol does develop any signs of withdrawal Hyperkalemia -mild, monitor - Time Spent With Patient Total time spent is greater than 50% in coordination of care (as documented) at patient's floor/unit and/or counseling patient: Greater than 35 minutes
[2019-07-16] MEDS: 0.9 % Sodium Chloride 1,000 ML IVC SCH ×2 (14:13→22:06)
[2019-07-16] MEDS: Acetaminophen 325 MG TABLET PO PRN (17:01)
[2019-07-16 18:33] LABS: Bilirubin,Urine Negative (Negative); Blood,Urine Negative (Negative); Clarity,Urine Clear (Clear); Color,Urine Dark Yellow (Yellow); Glucose,Urine (UA) Normal (Normal); Ketones,Urine Trace mg/dL (Negative); Leukocyte Esterase,Urine Negative (Negative); Nitrite,Urine Negative (Negative); Protein,Urine 100 mg/dL (Neg-Trace); Specific Gravity,Urine 1.025 (1.010-1.025); Urobilinogen,Urine Normal (Normal)
[2019-07-16 18:56] LABS: RBC,Urine 0-3 per hpf (0-3); Squamous Epithelial Cell,Urine Few per lpf (None-Few); WBC,Urine 0-3 per hpf (0-3)
[2019-07-16] MEDS ORDERED: *HR* HYDROcodone/Acet 7.5/325 mg TABLET PO PRN (19:06)
--- NOTE | 2019-07-16 21:55 | Electrocardiograph Report ---
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
[2019-07-17] MEDS: 0.9 % Sodium Chloride 1,000 ML IVC SCH ×2 (02:57→05:31)
[2019-07-17] MEDS: Acetaminophen 325 MG TABLET PO PRN (03:22)
[2019-07-17 05:24] LABS: Basophils % 0.2 %; Eosinophils % 0.2 %; Hematocrit 36.1 % (37.5-50.1); Immature Granulocytes % 0.7 % (0-4); Lymphocytes # 1.3 K/mcL (0.6-4.6); Lymphocytes % 14.9 %; Mean Corpuscular HGB Conc 33.2 g/dL (31.6-35.5); Mean Corpuscular Volume 108.4 fL (83.0-100.0); Mean Platelet Volume 11.1 fL (9.4-12.4); Monocytes # 0.9 K/mcL (0.0-1.3); Monocytes % 9.6 %; Neutrophils # 6.7 K/mcL (1.6-8.9); Platelet Count 134 K/mcL (140-400); Red Blood Count 3.33 M/mcL (4.19-5.50); Red Cell Distribution Width 13.9 % (11.5-14.5); Segmented Neutrophils % 74.4 %; White Blood Count 8.9 K/mcL (4.3-11.1)
[2019-07-17 05:43] LABS: Calcium 8.2 mg/dL (8.6-10.3); Chol/HDL Ratio 4.6 (0-4.9); Potassium 4.3 mEq/L (3.5-5.1)
--- NOTE | 2019-07-17 08:49 | Internal Med Progress Note ---
Hospitalist Progress Note - Encounter Date of Encounter: 07/17/19 Time of Encounter: 08:45 - Subjective Interval History: Mr. Sheridan is a 58 year old male who has a past medical history significant for heavy tobacco abuse, 2 packs per day for the last 40 years, and daily alcohol use of five 8 ounce glasses of wine daily. History of withdrawals. Patient was admitted for evaluation of chest pain for the last several days, described as pleuritic in nature, left side of his chest radiating into the jaw. He also had numerous episodes of lightheadedness and passing out since that time. Pt was dosed with inferior wall ST elevation [place], with a troponin of 28.97. He also was noted to have complete heart block. Patient underwent left heart catheterizat ion which showed a 100% distally occluded RCA with no collaterals, mid disease in the left coronary artery, EF of 45% with inferior wall hypokinesis. Recommendation was for medical management of his coronary artery disease, he also had a temporary pacemaker placed through his right groin. Patient is now transferred to ICU for further monitoring and management. Patient also on admission noted to have an elevated creatinine of 3.95. Sodium 138 potassium 5.2 chloride 99, CO2 21 BUN 25. Patient admits that he takes 2-3 [id number] Aleve daily for back pain, unclear dose. Also prior to arrival for the last 2-3 days he has had nausea with decreased oral intake, and occasional loose stools. No fevers or chills. Patient has no prior history of kidney disease as far as he knows. 07/17: Patient complaining of bilateral low to mid back pain. HR 59, BP 104 systolic. We are ordering a stat CBC however to rule out possibility of retroperitoneal bleed given his right groin pacemaker. If any drop will pursue noncon CT A/P. Will notify cardiology. He denies any nausea or vomiting. No fevers or chills. No chest pain or shortness of breath. He continues on normal saline at 125 miles per hour, he has produced over 700 mL's of urine over the last 24 hours. 1055: I was called stat to the bedside for patient having acute dyspnea. He 5% on room air. He was placed on high flow oxygen and subsequently is on BiPAP. He is feeling more comfortable. He stated he symptoms occurred when he rolled to the left. A stat chest x-ray is ordered. EKG showed peak T waves, ST elev inf leads. Of note his potassium was 4.3 this morning. On exam patient had diffuse wheezing. Heart rate 80's. Abdomen was soft nontender. His right groin had mild edema around the catheter site but no tee bleeding. Distal pulses intact. Blood pressure 103/80. CXR and ABG ordered. Dr. Qiu from cardiology is here and we discussed the case together. See follow on Event Note. - Exam Vitals: Temp Pulse Resp BP Pulse Ox 98.3 F 99 20 104/70 90 07/17/19 07:21 07/17/19 06:00 07/17/19 06:00 07/17/19 06:00 07/17/19 06:00 Exam: General: Awake alert and oriented 3 no acute distress Skin warm and dry OP moist Neck supple Lungs clear bilaterally Heart is tachycardic with regular rhythm Abdomen is soft nontender nondistended with normoactive bowel sounds Ext no edema Pacemaker right groin clean incision - Summary of Assessment and Plan Summary of Assessment and Plan: Inferior wall ST elevation [place] -Management as per cardiology -Patient is on statin, aspirin, Plavix -check AM Lipid panel Chest Pain -likely due to IWMI -Well's score argues against PE Complete heart block -s/p temp pacemaker -Management as per cardiology -stat CBC ordered, pt has back pain ?retroperit bleed, CT A/P noncon if Hb drop -we are checking stat CBC, and I discussed case with cardiology HOWARD Likely HTN, possibly related to ischemia, possible component of NSAID nephro ana He also has since received a contrast load for his heart catheterization Will avoid nephrotoxins, continue IV fluids, closely monitor electrolytes He is making urine, monitor for development of cardiorenal syndrome Renal ultrasound ordered Tobacco abuse -safety counselor -?underlying COPD, pt has mild hypoxemia this AM. -bronchodilators added Hypothyroidism -will start synthroid 50 mcg po daily, repeat TSH in 4 weeks Back Pain -Likely from laying in bed, however I will check a CBC to monitor for any blood loss, rule out a retroperitoneal bleed Chronic daily alcohol use -Last drink was 4 nights ago, no withdrawal symptoms -I will allow patient to drink alcohol does develop any signs of withdrawal Hyperkalemia -mild, monitor - Time Spent with Patient Total time spent is greater than 50% in coordination of care (as documented) at patient's floor/unit and/or counseling patient: Internal Medicine: Result - Labs CBC & Chem 7: 07/17/19 09:09 07/17/19 04:58 Labs: Short CBC 07/16/19 07/17/19 Range/Units 08:45 04:58 WBC 11.8 H 8.9 (4.3-11.1) K/mcL Hgb 13.8 12.0 L D (12.9-16.9) g/dL Hct 41.6 36.1 L (37.5-50.1) % Plt Count 163 134 L (140-400) K/mcL Neutrophils # 8.5 6.7 (1.6-8.9) K/mcL BMP 07/16/19 07/17/19 08:45 04:58 Sodium 138 134 L Potassium 5.2 H 4.3 Chloride 99 105 Carbon Dioxide 21 L 19 L BUN 25 H 34 H Creatinine 3.95 H 3.94 H Glucose 138 H 104 Calcium 9.5 8.2 L Cardiac Enzymes 07/16/19 Range/Units 08:45 Troponin I 28.97 H* (< 0.04) ng/mL Urine 07/16/19 Range/Units 18:20 Urine Color Dark Yellow (Yellow) Urine Clarity Clear (Clear) Urine pH 6.0 (5.0-8.0) pH Units Ur Specific [place] 1.025 (1.010-1.025) Urine Protein 100 H (Neg-Trace) mg/dL Urine Glucose (UA) Normal (Normal) mg/dL - Impressions Impressions Echocardiogram 07/16/19 09:56 Impressions: High degree AVB. BP 103/64 mmHg LVEF 55%. Normal right ventricular structure and function. Mild mitral regurgitation. Mild tricuspid regurgitation. Mild pulmonic regurgitation. Moderate pulmonary hypertension. Left Ventricular Wall Motion: Rest Echo Findings All wall segments showed normal motion. Findings: Study Quality * Technically adequate exam. ECG Findings * High degree AVB. Left Ventricle * LVEF 55%. * Indeterminate diastolic function. * LV chamber size and wall thickness are normal. Right Ventricle * Normal right ventricular structure and function. Left Atrium * Mildly dilated left atrium. Right Atrium * Normal right atrial size. Aortic Valve * Trace aortic regurgitation. * Trileaflet aortic valve. * No aortic stenosis. Mitral Valve * Mild mitral regurgitation. * No mitral stenosis. * Normal mitral valve structure. Tricuspid Valve * Normal tricuspid valve structure. * Mild tricuspid regurgitation. * Estimated RA pressure is 20 mmHg. * Estimated RVSP is 56 mmHg. * Moderate pulmonary hypertension. Pulmonic Valve * Pulmonic valve is not well visualized. * No pulmonic stenosis. * Mild pulmonic regurgitation. Pulmonary Artery * Pulmonary artery not well visualized. Aorta * Normally sized aortic root. Pericardium * There is no pericardial effusion present. Interatrial Septum * No evidence of PFO by color Doppler. IVC * The IVC is dilated. * < 50% respiratory change. Consult Discharge Plan - Plan Referrals: NONE,PCP [Primary Care Provider] -
[2019-07-17 10:11] LABS: Hematocrit 35.6 % (37.5-50.1); Hemoglobin 11.8 g/dL (12.9-16.9); Mean Corpuscular HGB Conc 33.1 g/dL (31.6-35.5); Mean Corpuscular Hemoglobin 36.6 pg (28.0-33.3); Mean Corpuscular Volume 110.6 fL (83.0-100.0); Mean Platelet Volume 11.2 fL (9.4-12.4); Platelet Count 132 K/mcL (140-400); Red Blood Count 3.22 M/mcL (4.19-5.50); Red Cell Distribution Width 13.7 % (11.5-14.5); White Blood Count 8.3 K/mcL (4.3-11.1)
--- NOTE | 2019-07-17 10:23 | Cardiology Progress Note ---
Date of Encounter: 07/17/19 Time of Encounter: 09:35 Assessment and Plan (1) STEMI (ST elevation myocardial infarction) Current Visit: No Status: Acute Late presentation CA. EKG showed CHB and inferior STEMI. Troponin 28.97. Pt states CP started on Saturday (3 days prior to presentation), was left sided and radiated to his jaw. Was near passing out on Saturday and ultimately did pass out before coming to the ED. 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 Medical management recommended. TV pacer inserted. Continues to have CHB. Continue asa and plavix. Note decrease in hgb. continue to monitor. Notes back pain but is chronic and pt is on bed rest for temp pacer. No bb due to CHB. Continue statin. No aceI d/t HOWARD. Qualifiers: Involved coronary artery: unspecified coronary artery Qualified Code(s): I21.3 - ST elevation (STEMI) myocardial infarction of unspecified site (2) Complete heart block Current Visit: Yes Status: Acute ECG with complete heart block in setting of acute renal failure, creatinine 3.95, hyperkalemia K 5.2, hypothyroidism TSH 8.726. TSH managment per primary team. 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 TTE LVEF 55%. Normal RV structure and function. Mild MR. Mild TR. Mild AR. Moderate phtn. Discussed and reviewed with Dr. Alessio Moya. Recommend correcting acute underlying issues. Possible PPM insertion on Friday 07/20 pending clinical course. (3) Acute renal failure Current Visit: Yes Status: Acute Kidney function unchanged. Avoid nephrotoxins. Qualifiers: Acute renal failure type: unspecified Qualified Code(s): N17.9 - Acute kidney failure, unspecified (4) TSH elevation Current Visit: Yes Status: Acute TSH 8.7. Denies history of thyroid disease. Hospitalist to manage. (5) ETOH abuse Current Visit: Yes Status: Chronic History of heavy ETOH abuse. Consider CIWA protocal. Discussion w patient/family: The assessment and plan as outlined above was discussed with the patient and/or family members who expressed understanding and agreement. All questions were answered. Thank you for involving us in the care of your patient. Please call with any questions. Subjective Principal diagnosis: Inferior STEMI, CHB Interval history: Mr. Sheridan is on bedrest with TV pacer intact. V pacing noted on telemetry. Pt c/o mild 3/10 midsternal chest pain. C/o 8/10 low back pain that is chronic. Inquiring about pain medication. No pain noted with right femoral. Objective Vital Signs, Last 4 Hours Temp Pulse Resp BP Pulse Ox 07/17/19 09:00 60 26 103/60 88 07/17/19 08:00 60 27 111/68 86 07/17/19 07:21 98.3 F General: Conversant, No Apparent Distress HEENT: Atraumatic, Normocephaly, Mucus Membranes Moist Neck: No JVD, Normal carotid pulses Cardiac: No Murmur, Other (Irregular, CHB underlying rhythm) Lungs: Normal Breath Sounds, No Wheeze, Rales, Rhonchi Neuro: Alert and responsive, No focal deficits noted Abdomen: Soft, Non-Tender Skin: No rashes noted on visualized skin Musculoskeletal: No Chest Wall Tenderness Extremities: No Clubbing, No Cyanosis, No Edema, Normal Pulses Results 07/17/19 09:09 07/17/19 04:58 Lab Results 07/17/19 07/17/19 07/17/19 04:58 04:58 09:09 WBC 8.9 8.3 Hgb 12.0 L D 11.8 L Hct 36.1 L 35.6 L Plt Count 134 L 132 L Sodium 134 L Potassium 4.3 Chloride 105 Carbon Dioxide 19 L BUN 34 H Creatinine 3.94 H Glucose 104 Calcium 8.2 L - Imaging and Cardiology Echo: report reviewed Cardiac cath: report reviewed - EKG Interpretation EKG results cardiology: personally reviewed Consult Discharge Plan - Plan Referrals: NONE,PCP [Primary Care Provider] - Cardiac Rehab - Cardiac Rehab Cardiac Rehab: Phase I consult completed. Patient was educated on why Cardiac Rehabilitation is beneficial to his/her health. Participating in a cardiac rehabilitation can improve the following: strengthen your heart, improve ejection fraction, weight reduction, decrease cholesterol levels, lower blood pressure, lower blood sugar, improve stamina, and enhance self-image. If he/she has any questions, they were instructed to call [facility] at [phone].
[2019-07-17] MEDS ORDERED: *HR* LORazepam 2 MG/ML VIAL IVP ONE (10:53)
[2019-07-17] MEDS ORDERED: *HR* LORazepam 2 MG/ML VIAL ONE (10:54)
[2019-07-17] MEDS ORDERED: Calcium Gluconate 2,000 MG in 0.9 % Sodium Chloride 100 ML IVPB ONE (10:55)
[2019-07-17] MEDS: Aspirin 81 MG TAB.CHEW PO SCH (10:58)
[2019-07-17] MEDS ORDERED: Ipratropium/Albuterol Neb 3 ML IH STA (11:00)
[2019-07-17] MEDS ORDERED: Ipratropium/Albuterol Neb 3 ML ONE (11:03)
[2019-07-17] MEDS ORDERED: Furosemide 80 MG in 0.9 % Sodium Chloride 50 ML IVPB ONE ×2 (11:15→17:28)
--- NOTE | 2019-07-17 11:48 | Electrocardiograph Report ---
[address] [place], [place] [address] Test Date: 2019-07-17 Pat Name: Clayton Sheridan Department: 109 Room: 11 Gender: M Exit Booth Agent: : 1960 Requested By: Froylan Harding Order Number: [id number] Reading MD: Mio Cosme Measurements Intervals [place] Rate: 59 P: [place]: 0 QRS: -20 QRSD: 149 T: 37 QT: 442 QTc: 442 Interpretive Statements Complete heart block Ventricular pacing MARKED ST ELEVATION, CONSIDER INFERIOR AND LATERAL INJURY ACUTE [place] Electronically Signed On 07-17-2019 11:47:19 EDT by Mio Cosme
[2019-07-17 12:55] LABS: Albumin 3.3 g/dL (3.5-5.7); Albumin/Globulin Ratio 1.2 (1.1-2.2); Bilirubin,Total 0.6 mg/dL (0.3-1.0); Calcium 8.4 mg/dL (8.6-10.3); Globulin 2.8 g/dL (2.4-3.5); Magnesium 1.9 mg/dL (1.6-2.6); Potassium 4.9 mEq/L (3.5-5.1); Total Protein 6.1 g/dL (6.4-8.9); Troponin I 18.65 ng/mL (< 0.04)
--- NOTE | 2019-07-17 14:00 | Nephrology Consult Note ---
Date of Encounter: 07/17/19 Time of Encounter: 14:00 Assessment and Plan (1) Acute kidney injury Current Visit: Yes Status: Acute Suspected acute kidney injury, unclear chronicity or baseline. Chart review reveals Scr 0.79 11/09/2014 Most likely ATN secondary to chronic NSAID use versus hemodynamic instability with acute STEMI however also in the differential include glomerular nephritic or nephrotic syndromes, hepatitis, autoimmune, vasculitis, rhabdomyolysis, multiple myeloma, unusual alcohols like antifreeze. Kidney injury present on presentation, does not appear to be contrast-induced. Further evaluation with retroperitoneal ultrasound Will check hepatitis panel, ZAKIA, pANCA, cANCA, C3 and C4 complements, CK, uric acid, serum electrophoresis, kappa lambda free light chain analysis. Recommendation for medical management at this time, no need for dialysis at this time Will continue to assess need for possible dialysis daily Recommend intermittent diuresis (2) Acute respiratory failure Current Visit: Yes Status: Acute Currently requiring BiPAP to maintain appropriate oxygen saturation Most likely secondary to pulmonary edema as seen on chest XR Continue intermittent diuresis Qualifiers: Respiratory failure complication: hypoxia Qualified Code(s): J96.01 - Acute respiratory failure with hypoxia (3) STEMI (ST elevation myocardial infarction) Current Visit: Yes Status: Acute Hemodynamic instability prior to presenting most likely contributed to his HOWARD Heart rate in the 30s on presentation Status post left heart catheter for acute distal RCA STEMI Temporary pacemaker placed for complete heart block, No stent placed, medical management and aggressive risk factor reduction Renal function does not appear to have declined after IV contrast Qualifiers: Involved coronary artery: right coronary artery Qualified Code(s): I21.11 - ST elevation (STEMI) myocardial infarction involving right coronary artery (4) Proteinuria Current Visit: Yes Status: Acute Proteinuria as well as ketonuria noted on UA Ketonuria possibly secondary to alcohol use versus starvation Unclear chronicity of the proteinuria Management and further workup as above Qualifiers: Proteinuria type: unspecified Qualified Code(s): R80.9 - Proteinuria, unspecified (5) ETOH abuse Current Visit: Yes Status: Chronic History of daily EtOH abuse Reported history of withdrawal symptoms in the past Denies history of unusual alcohols, such as isopropyl alcohol, antifreeze Consider vitamin supplementation, CIWA protocol History of Present Illness - Reason for Consult Consult date: 07/17/19 Acute Kidney Injury - Chief Complaint Chest pain - History of Present Illness Clayton Sheridan is a 58 y/o male who presented 07/16/19 with chest pain of 3 day duration. He has PMH of daily alcohol use, tobacco use with [id number] history, history of alcohol withdrawal, history of gout but no longer on medication. He takes no home medications besides 2 tablets of aleve for chronic back pain for the past several years and has not been seen prior to this admission for the past 3 years. No family history of kidney disorders or autoimmune disorders. He presented with 3 days of left-sided chest pain with radiation to the job as well as multiple episodes of diaphoresis and syncope as well as decreased PO intake. In the ED and EKG was completed which showed complete AV heart block. His troponin was elevated at 28.97, cardiology was consulted and recommended a stat echo which showed high degree AV block with LVEF 55% mild mitral, tricuspid, pulmonic regurgitation and moderate pulmonary hypertension. He was emergently taken to the catheter lab which revealed severe 1 vessel CAD with 100% occlusion to the RCA distally with no stent placed as well as LVEF 45% with inferior akinesis a right femoral vein temporary pacemaker was placed, recommendation for medical management and risk factor reduction. He was seen by the electrophysiology team for possible permanent pacemaker which may be placed on his upcoming Saturday. He was noted to have elevated TSH at 8.726 with free T4 0.94 and started on synthroid. Today he was complaining of dyspnea, a chest x- ray was performed which revealed mild prominence of interstitial markings, concern for mild edema and a superimposed infiltrate in the right lung base with a small right effusion. He was subsequently diuresed with 80 mg IV Lasix. He admits to improvement in dyspnea as well as continued back pain and cold intolerance. He denies nausea, vomiting, fever, chills, chest pain, palpitations, abdominal pain, diarrhea, constipation, dysuria, hematuria, calf pain. Past Med Surg Social Fam HX - Past Medical History Medical history: non-contributory Psychiatric history: no psych history - Past Surgical History Surgical History: pacemaker Additional surgical history: thumb injury with knife, spent a week in the hospital and went home with IV antibiotics 10 years ago - Social History Smoking Status: Current every day smoker Packs per day: 2 Smokeless Tobacco Status: No Alcohol use: heavy Drug use: none - Family History Father Living Status: Age at : 60 Cause of : lung CA Hx Family Cardiac Disorders: Yes Hx Family Cancer: Yes Mother Living Status: Age at : 60 Cause of : Brain tumor Medications and Allergies No Known Home Drugs 07/16/19 [History] Allergy/AdvReac Type Severity Reaction Status Date / Time No Known Allergies Allergy Verified 07/16/19 22:26 Review of Systems Constitutional: no chills, no fever(s), no weakness Nose, mouth and throat: no dizziness, no dysphagia, no headache(s) Cardiovascular: dyspnea, no chest pain, no edema, no radiating jaw, neck or arm pain, no lightheadedness, no palpitations, no syncope Respiratory: dyspnea, no hemoptysis, no pain on inspiration Gastrointestinal: no abdominal pain, no constipation, no diarrhea, no melena Genitourinary Male: no dysuria, no hematuria Musculoskeletal: back pain Integumentary: no lesions, no rash Neurological: no dizziness, no paresthesias, no syncope Psychiatric: anxiety, no depression Endocrine: cold intolerance, no heat intolerance Hematologic/Lymphatic: no easy bleeding, no easy bruising Allergic/Immunologic: no uticaria Exam - Vital Signs Vital signs: Initial Vital Signs Temp Pulse Resp BP Pulse Ox 98.7 F 33 16 130/71 99 07/16/19 07:59 07/16/19 07:59 07/16/19 07:59 07/16/19 07:59 07/16/19 07:59 Vital Signs - Last 8 Hours Temp Pulse Resp BP Pulse Ox 07/17/19 13:00 60 26 113/96 91 07/17/19 12:00 60 23 107/71 100 07/17/19 11:35 99.3 F 07/17/19 11:00 60 24 130/81 100 07/17/19 09:00 60 26 103/60 88 07/17/19 08:00 60 27 111/68 86 07/17/19 07:21 98.3 F Intake and Output 07/16/19 07/17/19 07/17/19 23:59 07:59 15:59 Intake Total 1839 1240 / 2578 1338 / 2578 Output Total 0 / 0 450 / 750 300 / 750 Balance 1839 790 / 1828 1038 / 1828 Intake: IV Fluids 1000 / 1000 1000 / 1858 858 / 1858 0.9 % Sodium Chloride 1,000 ML 1000 / 1000 1000 / 1800 800 / 1800 @ 125 mls/hr IVC .Q8H AARON Rx#: [id number] Lasix 80 MG In 0.9 % Sodium 58 / 58 Chloride 50 ML @ 100 mls/hr IVPB ONCE ONE Rx#:[id number] Oral 840 / 940 240 / 720 480 / 720 Output: Urine 0 / 0 450 / 750 300 / 750 Other: Meal Breakfast Percent of Meal Consumed 90% # Voids 0 1 Weight 93.3 kg Patient Weight 07/17/19 23:59 Weight 93.3 kg - General Appearance Exam: Gen: Vitals noted. Resting on BiPAP. AAOx3, able to converse, obese HEENT: EOMI, Normocephalic, atraumatic, MMM Cardiac: irregular rate, no murmur, +S1/S2, radial and dorsal pedis pulses 3+ and symmetrical Pulmonary: Diminished bilaterally, no wheezes, rales or rhonchi, equal chest expansion Abdomen: soft, nontender, BS noted, no guarding, no rebound. MSK: no joint swelling noted Extremities: no BLE edema, no calf tenderness, no cyanosis Neuro: A&Ox3, moves all extremities, no focal deficits Psych: Mildly anxious Results - Lab Results 07/17/19 14:19 07/17/19 11:51 Most recent lab results 07/17/19 07/17/19 04:58 11:51 Calcium 8.2 L 8.4 L Magnesium 1.9 Consult Discharge Plan - Plan Referrals: NONE,PCP [Primary Care Provider] -
[2019-07-17 14:54] LABS: Hematocrit 34.1 % (37.5-50.1); Hemoglobin 11.2 g/dL (12.9-16.9)
[2019-07-17] MEDS: Isosorbide MONOnitrate (24 HR) 30 MG TAB.ER.24H PO SCH (14:58)
--- NOTE | 2019-07-17 15:35 | Event Note ---
Date of Encounter: 07/17/19 Time of Encounter: 15:30 Patient had an episode of acute pulmonary edema this morning. He became short of breath, a chest x-ray showed pulmonary edema, BNP is elevated at 1473. IV fluids were stopped and patient was given 1 dose of 80 mg of Lasix IV. He was also briefly placed on BiPAP. He has had a reasonable diuresis of 1.25 L. Patient's symptoms are near completely resolved. A repeat echocardiogram showed EF of 45-50% with no new abnormalities. Cardiology to evaluate this patient, we did not believe he was having ongoing cardiac ischemia. Patient is much more comfortable. Discussed the case with nephrology who will see this patient in consult. Patient's hemoglobin has remained stable, his back pain is likely more musculoskeletal in nature. No evidence to support a retroperitoneal hematoma. We will continue to monitor, await further nephrology input. Cardiology input appreciated. I discussed the case with the patient and his at the bedside. .
[2019-07-17] MEDS: Ipratropium/Albuterol Neb 3 ML IH SCH ×2 (16:00→22:25)
[2019-07-17 18:22] LABS: Complement C3 151 mg/dL (87-200); Uric Acid 15.5 mg/dL (2.3-7.6)
[2019-07-17 19:17] LABS: Hepatitis B Surface Antigen Nonreactive (Nonreactive)
[2019-07-17 19:46] LABS: Hepatitis B Core IgM Nonreactive (Nonreactive)
[2019-07-17 19:48] LABS: Hepatitis C Virus Antibody Nonreactive (Nonreactive)
[2019-07-17 19:50] LABS: Hepatitis A Antibody IgM Nonreactive (Nonreactive)
[2019-07-17] MEDS: *HR* HYDROcodone/Acet 5/325 mg TABLET PO PRN (20:00)
[2019-07-18] MEDS: Ipratropium/Albuterol Neb 3 ML IH SCH ×4 (03:35→23:02)
[2019-07-18 05:34] LABS: Calcium 8.5 mg/dL (8.6-10.3); Potassium 3.7 mEq/L (3.5-5.1)
--- NOTE | 2019-07-18 07:54 | Internal Med Progress Note ---
Hospitalist Progress Note - Encounter Date of Encounter: 07/18/19 Time of Encounter: 07:43 - Subjective Interval History: ICU Summary to date: This is a 58-year-old male with past medical history significant for heavy tobacco abuse, daily excessive alcohol use. Patient was admitted to the hospital on July [address] elevation CO, and heart block. Pt had apparently been having symptoms of weakness, diaphoresis, nausea, decreased oral intake for the last 3 days in addition to chest pain prior to presenting to the hospital. Patient's heart catheter. Sedation showed complete occlusion of the RCA, no intervention was performed. EF 45%, with inferior wall hypokinesis. Patient also had a temporary pacemaker placed to his right femoral vein. Patient on arrival was also noted to be in acute renal failure with a creatinine of 3.95. Patient is post operative course has been complicated by acute pulmonary edema likely related to IV fluids given for his renal failure. On Saturday, July 17 patient received 2 doses of Lasix 80 mg IV in addition to BiPAP, and has had significant improvement. She remains on oxygen at 3-5 L per nasal cannula. We did repeat an echocardiogram which showed no changes with reg ards to cardiac function, no acute valvular abnormalities. Nephrology has been consulted, and they are evaluating whether or not this patient needs hemodialysis 07/18: Patient's creatinine has improved to 2.57, BP 122, sodium 135 potassium 3.7 chloride 102. A renal ultrasound showed no obstruction, normal appearing kidneys. Patient remains free of IV fluids and is on oral overload. Vital sig ns are stable. He is currently on 5 L of oxygen per nasal cannula, with an O2 sat of 91%. His morning patient states she has very minimal shortness of breath. No chest pain. No nausea, vomiting, diarrhea. No fevers or chills. He voices frustration over the fact that he has to lay flat until Saturday given his femoral pacemaker. Other than that mentioned above a 10 point review of systems is negative - Exam Vitals: Temp Pulse Resp BP Pulse Ox 98.5 F 60 18 94/70 93 07/18/19 04:00 07/18/19 06:00 07/18/19 06:00 07/18/19 06:00 07/18/19 06:00 Exam: General: Awake alert and oriented 3 no acute distress Skin warm and dry OP moist Neck supple Lungs bibasilar crackles, exp wheeze right midlung field Heart is tachycardic with regular rhythm Abdomen is soft nontender nondistended with normoactive bowel sounds Ext tr edema Pacemaker right groin clean incision, mild edema Neuro Nonfocal - Summary of Assessment and Plan Summary of Assessment and Plan: Inferior wall ST elevation CO -Management as per cardiology -Patient is on statin-lipitor 80 mg, aspirin 81 mg, Plavix 75 mg -Lipids Chol 144 LDL 71 HDL 31 TG 210 Chest Pain -likely due to IWMI -Well's score argues against PE Complete heart block -s/p temp pacemaker -Management as per cardiology -likely ppm on Saturday HOWARD Likely HTN, possibly related to ischemia, possible component of NSAID neph ropathy He also has since received a contrast load for his heart catheterization Will avoid nephrotoxins, continue IV fluids, closely monitor electrolytes He is making urine, monitor for development of cardiorenal syndrome Renal ultrasound nml appearing kidneys, no obx 07/18: Creatinine is not significantly improved but trending favorably -Patient on oral intake alone, no more IV fluids. -I discussed the case with nephrology this morning Dr. Londono, No acute indication for dialysis. Continue to monitor. Tobacco abuse -executive assistant to general counsel -?underlying COPD, pt has mild hypoxemia this AM. -bronchodilators added -future outpatient PFT's with DLCO and Lung Volumes Hypothyroidism -will start synthroid 50 mcg po daily, repeat TSH in 4 weeks Back Pain -Likely from laying in bed, however I will check a CBC to monitor for any blood loss, rule out a retroperitoneal bleed Chronic daily alcohol use -Last drink was 4 nights ago, no withdrawal symptoms -I will allow patient to drink alcohol does develop any signs of withdrawal 07/18: No sx of withdrawl. ETOH counseling Hyperkalemia -resolved, monitor DVT Prophy -SCD's - Time Spent with Patient Total time spent is greater than 50% in coordination of care (as documented) at patient's floor/unit and/or counseling patient: Greater than 35 minutes Internal Medicine: Result - Labs CBC & Chem 7: 07/17/19 14:19 07/18/19 05:01 Labs: Short CBC 07/17/19 07/17/19 Range/Units 09:09 14:19 WBC 8.3 (4.3-11.1) K/mcL Hgb 11.8 L 11.2 L (12.9-16.9) g/dL Hct 35.6 L 34.1 L (37.5-50.1) % Plt Count 132 L (140-400) K/mcL BMP 07/17/19 07/18/19 11:51 05:01 Sodium 136 135 L Potassium 4.9 3.7 Chloride 106 102 Carbon Dioxide 21 L 22 L BUN 38 H 41 H Creatinine 3.76 H 3.57 H Glucose 111 H 129 H Calcium 8.4 L 8.5 L Cardiac Enzymes 07/17/19 Range/Units 11:51 Troponin I 18.65 H* (< 0.04) ng/mL Liver Function 07/17/19 Range/Units 11:51 Total Bilirubin 0.6 (0.3-1.0) mg/dL AST 71 H (13-39) Units/L ALT 53 H (7-52) Units/L Alkaline Phosphatase 86 (34-104) Units/L Albumin 3.3 L (3.5-5.7) g/dL - Impressions Impressions Chest X-Ray 07/17/19 11:08 IMPRESSION: Mild prominence of the interstitial markings which is concerning for mild edema. A superimposed infiltrate cannot be excluded in the right lung base. There is a small right effusion. Follow up to resolution is suggested. D/ / 07/17/2019 11:12:51 Jyoti Mason MD / Jessica Narayanan Interpreting Provider: Jyoti Mason MD Echocardiogram 07/17/19 12:55 Impressions: LVEF 45-50%. LV systolic dysfunction with mild segmental variation. Indeterminate diastolic function. Normal right ventricular structure and function. Mild aortic regurgitation. Mild-moderate mitral regurgitation. Mild-moderate tricuspid regurgitation. Mild pulmonic regurgitation. Moderate-severe pulmonary hypertension. Linear echodensity observed in the RV consistent with pacer lead. Left Ventricular Wall Motion: Rest Echo Findings The mid inferior, basal inferior and basal inferior septal dominguez were hypokinetic. All other wall segments showed normal motion. Findings: Study Quality * Technically adequate exam. ECG Findings * Paced rhythm. Left Ventricle * LVEF 45-50%. * Indeterminate diastolic function. * LV chamber size and wall thickness are normal. Right Ventricle * Normal right ventricular structure and function. Right Atrium * Mildly dilated right atrium. Left Atrium * Mildly dilated left atrium. Aortic Valve * Trileaflet aortic valve. * No aortic stenosis. * Mild aortic regurgitation. Mitral Valve * Normal mitral valve structure. * No mitral stenosis. * Mild-moderate mitral regurgitation. Tricuspid Valve * Tricuspid valve not well visualized. * Mild-moderate tricuspid regurgitation. * Estimated RA pressure is 20 mmHg. * Estimated RVSP is 61 mmHg. * Moderate-severe pulmonary hypertension. Pulmonic Valve * Pulmonic valve is not well visualized. * No pulmonic stenosis. * Mild pulmonic regurgitation. Pulmonary Artery * Pulmonary artery not well visualized. Aorta * Normally sized aortic root. Pericardium * There is no pericardial effusion present. Device lead * Linear echodensity observed in the RV consistent with pacer lead. Interatrial Septum * No evidence of PFO by color Doppler. IVC * The IVC is dilated. * < 50% respiratory change. Retroperitoneum Ultrasound 07/17/19 19:03 IMPRESSION: Unremarkable ultrasound of the kidneys D/ / Yogesh Brown MD / Yogesh Brown MD Interpreting Provider: Yogesh Brown MD Consult Discharge Plan - Plan Referrals: NONE,PCP [Primary Care Provider] -
--- NOTE | 2019-07-18 09:16 | Cardiology Progress Note ---
Date of Encounter: 07/18/19 Time of Encounter: 09:14 Assessment and Plan (1) STEMI (ST elevation myocardial infarction) Current Visit: Yes Status: Acute Late presentation [place]. EKG showed CHB and inferior STEMI. Troponin 28.97 and now trending down. Pt states CP started on Saturday (3 days prior to presentation), was left sided and radiated to his jaw. Was near passing out on Saturday and ultimately did pass out before coming to the ED. [facility] completed and showed MRI CT TECH of the RCA. Medical management recommended. TV pacer inserted. Continues to have CHB underlying. Per nursing staff when pacer box switch there was long pause. Continue asa and plavix. No bb. Note decrease in hgb. continue to monitor. Notes back pain but is chronic and pt is on bed rest for temp pacer. Back pain imroved today with medications. Continue statin. No aceI d/t HOWARD. Qualifiers: Involved coronary artery: right coronary artery Qualified Code(s): I21.11 - ST elevation (STEMI) myocardial infarction involving right coronary artery (2) Complete heart block Current Visit: Yes Status: Acute ECG with complete heart block in setting of acute renal failure, creatinine 3.95, hyperkalemia K 5.2, hypothyroidism TSH 8.726. TSH management per primary team. 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 TTE LVEF 55%. Normal RV structure and function. Mild MR. Mild TR. Mild HI. Moderate phtn. Discussed and reviewed with Dr. Alessio Moya. Recommend correcting acute underlying issues. Possible PPM insertion on Friday 07/20 pending clinical cour se. (3) Acute renal failure Current Visit: Yes Status: Acute Kidney function mildly improved. Avoid nephrotoxins. Qualifiers: Acute renal failure type: unspecified Qualified Code(s): N17.9 - Acute kidney failure, unspecified (4) TSH elevation Current Visit: Yes Status: Acute TSH 8.7. Denies history of thyroid disease. Hospitalist to manage. (5) ETOH abuse Current Visit: Yes Status: Chronic History of heavy ETOH abuse. Consider CIWA protocal. (6) Acute respiratory failure Current Visit: Yes Status: Acute Pulmonary edema likely secondary to NJ, acute DChf, and HOWARD with dominique procedure fluids. IV fluids held and lasix IV x2 given. Breathing improved. May need repeat dose as needed. Qualifiers: Respiratory failure complication: hypoxia Qualified Code(s): J96.01 - Acute respiratory failure with hypoxia Discussion w patient/family: The assessment and plan as outlined above was discussed with the patient and/or family members who expressed understanding and agreement. All questions were answered. Thank you for involving us in the care of your patient. Please call with any questions. Subjective Principal diagnosis: Inferior STEMI, CHB Interval history: Mr. Sheridan is on bedrest with TV pacer intact. V pacing noted on telemetry. No chest pain today. Breathing improved. Objective Vital Signs, Last 4 Hours Temp Pulse Resp BP Pulse Ox 07/18/19 08:01 98.3 F 07/18/19 07:53 60 07/18/19 07:41 60 20 103/63 91 07/18/19 06:00 60 18 94/70 93 General: Conversant, No Apparent Distress HEENT: Atraumatic, Normocephaly, Mucus Membranes Moist Neck: No JVD, Normal carotid pulses Cardiac: Reg Rate and Rhythm, Normal S1 and S2, No Murmur Lungs: Normal Breath Sounds, No Wheeze, Rales, Rhonchi Neuro: Alert and responsive, No focal deficits noted Abdomen: Soft, Non-Tender Skin: No rashes noted on visualized skin Musculoskeletal: No Chest Wall Tenderness Extremities: No Clubbing, No Cyanosis, No Edema, Normal Pulses, Other (Right TV pacer intact. Dressing intact. ) Results 07/17/19 14:19 07/18/19 05:01 Lab Results 07/17/19 07/17/19 07/17/19 09:09 11:51 11:51 WBC 8.3 Hgb 11.8 L Hct 35.6 L Plt Count 132 L Sodium 136 Potassium 4.9 Chloride 106 Carbon Dioxide 21 L BUN 38 H Creatinine 3.76 H Glucose 111 H Calcium 8.4 L Magnesium 1.9 Total Bilirubin 0.6 AST 71 H ALT 53 H Alkaline Phosphatase 86 Troponin I 18.65 H* B-Natriuretic Peptide 1473 H 07/17/19 07/18/19 14:19 05:01 WBC Hgb 11.2 L Hct 34.1 L Plt Count Sodium 135 L Potassium 3.7 Chloride 102 Carbon Dioxide 22 L BUN 41 H Creatinine 3.57 H Glucose 129 H Calcium 8.5 L Magnesium Total Bilirubin AST ALT Alkaline Phosphatase Troponin I B-Natriuretic Peptide - Imaging and Cardiology Echo: report reviewed - EKG Interpretation EKG results cardiology: personally reviewed Consult Discharge Plan - Plan Referrals: NONE,PCP [Primary Care Provider] - Cardiac Rehab - Cardiac Rehab Cardiac Rehab: Phase I consult completed. Patient was educated on why Cardiac Rehabilitation is beneficial to his/her health. Participating in a cardiac rehabilitation can improve the following: strengthen your heart, improve ejection fraction, weight reduction, decrease cholesterol levels, lower blood pressure, lower blood sugar, improve stamina, and enhance self-image. If he/she has any questions, they were instructed to call [facility] at [phone].
[2019-07-18] MEDS: Isosorbide MONOnitrate (24 HR) 30 MG TAB.ER.24H PO SCH (09:17)
[2019-07-18] MEDS: Aspirin 81 MG TAB.CHEW PO SCH (09:17)
--- NOTE | 2019-07-18 11:23 | Nephrology Progress Note ---
Date of Encounter: 07/18/19 Time of Encounter: 08:10 - Assessment and Plan (1) Acute kidney injury Status: Acute Elevated SCr without known baseline. His UOP did successfully respond and his SCr has remained stable with the intermittent approach to Lasix. Continue to follow strict I/Os, daily weights, renal dosing, avoiding concomitant nephrotoxins as able. 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 Discussed with the ICU team. Will carefully follow with you on this complex pt who required a very high degree of E/M and MDM. Thank you. (2) Acute respiratory failure Status: Acute Qualifiers: Respiratory failure complication: hypoxia Qualified Code(s): J96.01 - Acute respiratory failure with hypoxia (3) Complete heart block Status: Acute (4) Proteinuria Status: Acute Qualifiers: Proteinuria type: unspecified Qualified Code(s): R80.9 - Proteinuria, unspecified (5) ETOH abuse Status: Chronic Subjective Principal diagnosis: Inferior STEMI, CHB Interval history: He reported feeling a little better today, though still felt tired. He said he had some mild chest discomfort and ongoing shortness of breath, but again felt slightly better. His brother was present at the bedside and I answered all of his questions. Objective - Vital Signs Vital signs: Vital Signs Temp Pulse Resp BP Pulse Ox 07/18/19 11:12 95 07/18/19 11:08 60 22 108/64 96 07/18/19 10:18 60 19 106/59 96 07/18/19 09:13 60 22 99/62 94 07/18/19 08:01 98.3 F 07/18/19 08:00 60 22 110/62 92 07/18/19 07:53 60 07/18/19 07:41 60 20 103/63 91 07/18/19 06:00 60 18 94/70 93 07/18/19 05:00 60 25 91/54 94 07/18/19 04:20 60 07/18/19 04:00 98.5 F 60 17 101/59 93 07/18/19 03:36 16 94 07/18/19 03:00 60 17 95/61 93 07/18/19 02:00 65 24 104/52 94 07/18/19 01:00 60 25 94/63 94 07/18/19 00:23 60 07/18/19 00:00 60 25 88/65 90 07/17/19 23:59 98.3 F 07/17/19 23:00 60 19 97/68 94 07/17/19 22:27 18 96 07/17/19 22:00 60 18 91/65 95 07/17/19 21:00 60 19 97/61 93 07/17/19 20:00 98.8 F 60 28 113/59 93 07/17/19 19:00 60 23 136/63 93 07/17/19 18:00 60 30 102/64 92 07/17/19 17:00 60 24 107/67 98 07/17/19 16:00 60 24 109/65 97 07/17/19 15:00 60 30 129/63 88 07/17/19 14:00 60 24 119/69 97 07/17/19 13:00 60 26 113/96 91 07/17/19 12:00 60 23 107/71 100 07/17/19 11:35 99.3 F Intake and Output 07/17/19 07/18/19 07/18/19 23:59 07:59 15:59 Intake Total 500 / 860 360 / 860 Output Total 450 / 2150 400 / 800 400 / 800 Balance -450 / 548 100 / 60 -40 / 60 Intake: Oral 500 / 860 360 / 860 Output: Urine 450 / 2150 400 / 800 400 / 800 Other: Meal Breakfast Percent of Meal Consumed 100% # Voids 1 Weight 94.5 kg - General Appearance General appearance: Present: well-developed, well-nourished, appears started age EENT: Present: ATNC, PERRL, mucous membranes moist Neck: Present: JVD Respiratory: Present: rales Cardiology: Present: no edema, regular rate, regular rhythm, normal S1, normal S2 Gastrointestinal: Present: normoactive bowel sounds, no tenderness, no guarding, obese Integumentary: Present: no rash, warm and dry Neurologic: Present: no focal deficit, no asterixis, alert and oriented x3 Musculoskeletal: Present: no erythema, no cyanosis Psychiatric: Present: mood/affect appropriate, cooperative - Lab 07/21/19 05:49 07/21/19 05:49 Most recent lab results 07/18/19 05:01 Calcium 8.5 L Consult Discharge Plan - Plan Instructions: Metoprolol (By mouth), Levothyroxine (By mouth), Cyclobenzaprine (By mouth), Aspirin (By mouth), Isosorbide Mononitrate (By mouth), Atorvastatin (By mouth), Clopidogrel (By mouth), Heart Failure (DC), Acute Kidney Injury (DC) Additional Instructions: ACTIVITY: Moderate activity for the next 7 days. No lifting more than 5 pounds (gallon of milk) for 4-6 weeks. Avoid lifting your arm on the same side as the device for 4 weeks. BATHING /SHOWERING: Do not remove the large bandage over the site for 2 days. Do not allow the device to get wet for 7-10 days. You may bathe/shower, but do not use soap and water on the site. When bathing, keep the site dry by covering with Saran wrap or a towel. WOUND CARE: The white steri-strips will start to peel away and come off after 14 days, or your doctor will remove them after [address] anything into or on top of the incision. Do not use cotton swabs. Do not use any antibiotic ointment or Vitamin E on the site. REMINDERS: You may use electrical devices, such as, microwaves, hair dryers, electric razors, electric blankets, etc. as long as they are in good condition and kept 6-8 inches away from the device. It is recommended to use cell phones on the opposite side of your device. Notify security personnel at the airport that you have a device before you go through airport security screening. When at places with security monitors, such as a grocery store, do not linger near these monitors. It is fine to walk past them in a normal manner. Refer to your owners manual for more specific directions. CARRY YOUR PACEMAKER/ICD CARD WITH YOU AT ALL TIMES Return to work as instructed per physician Resume driving as instructed per physician Keep all scheduled follow up appointments Resume medications as instructed Contact [facility] ( ) if: You develop excessive bleeding from insertion or wound site not controlled by applying pressure You develop a fever greater than 101 degrees Fahrenheit Your incision becomes reddened at or around the site Your incision develops yellowish or greenish drainage or development of white pimple-like bumps You experience excessive pain You develop swelling in your ankles You experience muscle switching You develop excessive hiccupping If you experience chest pain, shortness of breath, dizziness, or extreme tiredness, stop the activity and rest. Please notify [facility] office if you experience any of these symptoms and they are not relieved by rest please call 911! Referrals: [facility] [Other] (Referral made physicians office will call the patient to schedule a follow-up appointment. ) Wilberto Gutierrez CNP [Advanced Practice Nurse] - Chris Londono DO [Partnered Physician] - (Referral made, physicians office will call the patient to schedule a follow-up appointment.) Prescriptions: Aspirin 81 mg PO DAILY #60 tab.chew Prescription Printed Cyclobenzaprine [Flexeril] 10 mg PO TID #20 tablet Prescription Printed Isosorbide MONOnitrate (24 HR) [Imdur] 30 mg PO DAILY #90 tab.er.24h Prescription Printed Atorvastatin [Lipitor] 80 mg PO HS #90 tablet Prescription Printed Metoprolol [Lopressor] 25 mg PO BID #90 tablet Prescription Printed Clopidogrel [Plavix] 75 mg PO DAILY #60 tablet Prescription Printed Levothyroxine [Synthroid] 50 mcg PO 0630 #60 tablet Prescription Printed
[2019-07-18] MEDS: Acetaminophen 325 MG TABLET PO PRN (15:21)
[2019-07-19] MEDS: Ipratropium/Albuterol Neb 3 ML IH SCH ×4 (04:01→22:08)
[2019-07-19] MEDS: Isosorbide MONOnitrate (24 HR) 30 MG TAB.ER.24H PO SCH (07:51)
[2019-07-19] MEDS: Aspirin 81 MG TAB.CHEW PO SCH (07:51)
[2019-07-19] MEDS: *HR* HYDROcodone/Acet 5/325 mg TABLET PO PRN ×2 (07:53→23:03)
--- NOTE | 2019-07-19 08:58 | Nephrology Progress Note ---
Date of Encounter: 07/19/19 Time of Encounter: 07:35 - Assessment and Plan (1) Acute kidney injury Status: Acute Pending labs, though ordered in advance. UOP is good. He did not affirm having uremic symptoms and is not fluid overloaded on exam, so I would not recommend [employer] today. Unknown baseline level of SCr. Continue to follow strict I/Os, daily weights, renal dosing, avoiding concomitant nephrotoxins as able. He does not have urgent indications for [employer] today as his SCr improved, he is not uremic on exam nor fluid overloaded on exam. Discussed with the ICU team. I will continue to assist and carefully follow with you on this complex pt who required a very high degree of E/M and MDM. Thank you. (2) Acute respiratory failure Status: Acute Qualifiers: Respiratory failure complication: hypoxia Qualified Code(s): J96.01 - Acute respiratory failure with hypoxia (3) Complete heart block Status: Acute Appreciate Cardio: s/p temp pacer and I see there are plans for a permanent pacer on Saturday. (4) Proteinuria Status: Acute Could be NSAID related Qualifiers: Proteinuria type: unspecified Qualified Code(s): R80.9 - Proteinuria, unspecified (5) ETOH abuse Status: Chronic As per primary Subjective Principal diagnosis: Inferior STEMI, CHB Interval history: The patient was seen and examined in the morning. He stated that he is feeling better already, and did not affirm active chest pain, nausea, or vomiting. He affirmed feeling somewhat tired, but overall better he affirmed. Objective - Vital Signs Vital signs: Vital Signs Temp Pulse Resp BP Pulse Ox 07/19/19 08:09 60 20 123/71 92 07/19/19 07:57 60 07/19/19 07:44 60 23 106/67 88 07/19/19 07:00 98.7 F 07/19/19 06:00 60 24 94/64 91 07/19/19 05:00 60 22 107/67 89 07/19/19 04:02 16 95 07/19/19 04:00 99.2 F 60 20 112/96 94 07/19/19 03:38 60 07/19/19 03:00 60 21 110/75 91 07/19/19 02:00 60 20 114/70 91 07/19/19 01:00 60 24 107/71 89 07/19/19 00:32 99.0 F 07/19/19 00:31 60 07/19/19 00:00 99.0 F 60 21 109/67 91 07/18/19 23:03 16 94 07/18/19 23:00 65 23 108/60 97 07/18/19 22:00 60 22 112/74 93 07/18/19 21:00 60 21 96/59 95 07/18/19 20:26 65 07/18/19 20:00 65 25 114/69 95 07/18/19 19:40 99.1 F 07/18/19 19:00 60 24 111/64 95 07/18/19 18:16 60 24 104/66 94 07/18/19 17:00 60 20 90/52 94 07/18/19 16:00 60 27 100/64 92 07/18/19 15:30 16 93 07/18/19 15:26 62 07/18/19 15:00 100.2 F H 60 26 109/62 93 07/18/19 14:20 60 25 124/54 93 07/18/19 13:00 60 27 117/72 90 07/18/19 12:30 60 26 123/71 89 07/18/19 11:53 99.2 F 07/18/19 11:14 60 07/18/19 11:12 95 07/18/19 11:08 60 22 108/64 96 07/18/19 10:18 60 19 106/59 96 07/18/19 09:56 16 96 07/18/19 09:13 60 22 99/62 94 Intake and Output 07/18/19 07/19/19 07/19/19 23:59 07:59 15:59 Intake Total 750 / 2210 100 / 340 240 / 340 Output Total 400 / 1600 900 / 900 Balance 350 / 610 -800 / -560 240 / -560 Intake: Oral 750 / 2210 100 / 340 240 / 340 Output: Urine 400 / 1600 900 / 900 Other: Meal Breakfast Percent of Meal Consumed 20% Weight 95.4 kg Patient Weight 07/19/19 23:59 Weight 95.4 kg - General Appearance General appearance: Present: well-developed, well-nourished, appears started age EENT: Present: ATNC, PERRL, mucous membranes moist Neck: Present: no JVD, supple Respiratory: Present: clear (with faint rhonchi in the bibasilar region) Cardiology: Present: no edema, regular rate, regular rhythm, normal S1, normal S2 Gastrointestinal: Present: normoactive bowel sounds, no tenderness, no guarding Integumentary: Present: no rash, warm and dry Neurologic: Present: no focal deficit, no asterixis, alert and oriented x3 Musculoskeletal: Present: no deformities, no erythema, no cyanosis Psychiatric: Present: mood/affect appropriate, cooperative - Lab 07/21/19 05:49 07/21/19 05:49 Consult Discharge Plan - Plan Instructions: Metoprolol (By mouth), Levothyroxine (By mouth), Cyclobenzaprine (By mouth), Aspirin (By mouth), Isosorbide Mononitrate (By mouth), Atorvastatin (By mouth), Clopidogrel (By mouth), Heart Failure (DC), Acute Kidney Injury (DC) Additional Instructions: ACTIVITY: Moderate activity for the next 7 days. No lifting more than 5 pounds (gallon of milk) for 4-6 weeks. Avoid lifting your arm on the same side as the device for 4 weeks. BATHING /SHOWERING: Do not remove the large bandage over the site for 2 days. Do not allow the device to get wet for 7-10 days. You may bathe/shower, but do not use soap and water on the site. When bathing, keep the site dry by covering with Saran wrap or a towel. WOUND CARE: The white steri-strips will start to peel away and come off after 14 days, or your doctor will remove them after [address] anything into or on top of the incision. Do not use cotton swabs. Do not use any antibiotic ointment or Vitamin E on the site. REMINDERS: You may use electrical devices, such as, microwaves, hair dryers, electric razors, electric blankets, etc. as long as they are in good condition and kept 6-8 inches away from the device. It is recommended to use cell phones on the opposite side of your device. Notify security personnel at the airport that you have a device before you go through airport security screening. When at places with security monitors, such as a grocery store, do not linger near these monitors. It is fine to walk past them in a normal manner. Refer to your owners manual for more specific directions. CARRY YOUR PACEMAKER/ICD CARD WITH YOU AT ALL TIMES Return to work as instructed per physician Resume driving as instructed per physician Keep all scheduled follow up appointments Resume medications as instructed Contact [facility] ( ) if: You develop excessive bleeding from insertion or wound site not controlled by applying pressure You develop a fever greater than 101 degrees Fahrenheit Your incision becomes reddened at or around the site Your incision develops yellowish or greenish drainage or development of white pimple-like bumps You experience excessive pain You develop swelling in your ankles You experience muscle switching You develop excessive hiccupping If you experience chest pain, shortness of breath, dizziness, or extreme tiredness, stop the activity and rest. Please notify [facility] office if you experience any of these symptoms and they are not relieved by rest please call 911! Referrals: Residency [facility] [Other] (Referral made physicians office will call the patient to schedule a follow-up appointment. ) Wilberto Gutierrez CNP [Advanced Practice Nurse] - Chris Londono DO [Partnered Physician] - (Referral made, physicians office will call the patient to schedule a follow-up appointment.) Prescriptions: Aspirin 81 mg PO DAILY #60 tab.chew Prescription Printed Cyclobenzaprine [Flexeril] 10 mg PO TID #20 tablet Prescription Printed Isosorbide MONOnitrate (24 HR) [Imdur] 30 mg PO DAILY #90 tab.er.24h Prescription Printed Atorvastatin [Lipitor] 80 mg PO HS #90 tablet Prescription Printed Metoprolol [Lopressor] 25 mg PO BID #90 tablet Prescription Printed Clopidogrel [Plavix] 75 mg PO DAILY #60 tablet Prescription Printed Levothyroxine [Synthroid] 50 mcg PO 0630 #60 tablet Prescription Printed
[2019-07-19 09:07] LABS: Hematocrit 31.1 % (37.5-50.1); Hemoglobin 10.4 g/dL (12.9-16.9); Mean Corpuscular HGB Conc 33.4 g/dL (31.6-35.5); Mean Corpuscular Hemoglobin 35.9 pg (28.0-33.3); Mean Corpuscular Volume 107.2 fL (83.0-100.0); Mean Platelet Volume 11.1 fL (9.4-12.4); Platelet Count 133 K/mcL (140-400); Red Cell Distribution Width 13.2 % (11.5-14.5); White Blood Count 5.4 K/mcL (4.3-11.1)
[2019-07-19 09:27] LABS: Calcium 8.5 mg/dL (8.6-10.3); Potassium 4.1 mEq/L (3.5-5.1)
--- NOTE | 2019-07-19 09:35 | Cardiology Progress Note ---
Date of Encounter: 07/19/19 Time of Encounter: 09:33 Assessment and Plan (1) Complete heart block Current Visit: Yes Status: Acute Complete heart block in the setting of an inferior NH. Temporary pacemaker in place. HR turned down this morning, patient remains in complete heart block despite correction of potassium. Continue temporary pacemaker for today. EP evaluation in progression. Plan for likely pacemaker tomorrow. ICU/nephrology management re: renal insufficiency. (2) STEMI (ST elevation myocardial infarction) Current Visit: Yes Status: Acute Per reports, late presenting inferior STEMI. LHC demonstrated occluded RCA, medical therapy recommended. 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 Mild CMP per reports, EF 45%. Currently chest pain free. Recommend continue aspirin/statin/imdur therapy. Ideally, continue Plavix given ACS event, but monitor H/H closely. Now down to 10.2. Hold BB therapy until permament pacemaker given CHB. Risk factor modification encouraged. Qualifiers: Involved coronary artery: right coronary artery Qualified Code(s): I21.11 - ST elevation (STEMI) myocardial infarction involving right coronary artery Discussion w patient/family: The assessment and plan as outlined above was discussed with the patient and/or family members who expressed understanding and agreement. All questions were answered. Thank you for involving us in the care of your patient. Please call with any questions. Subjective Principal diagnosis: Inferior STEMI, CHB Interval history: Patient seen and examined. Chart reviewed. Denies chest pain or discomfort. Denies dyspnea, orthopnea. Temporary pacemaker remains in place. HR turned down, patient remains in complete heart block. Objective Vital Signs, Last 4 Hours Temp Pulse Resp BP Pulse Ox 07/19/19 08:09 60 20 123/71 92 07/19/19 07:57 60 07/19/19 07:44 60 23 106/67 88 07/19/19 07:00 98.7 F 07/19/19 06:00 60 24 94/64 91 General: Conversant, No Apparent Distress HEENT: Atraumatic, Normocephaly, Mucus Membranes Moist Neck: No JVD, Normal carotid pulses Cardiac: Reg Rate and Rhythm, Normal S1 and S2, No Murmur Lungs: Normal Breath Sounds, No Wheeze, Rales, Rhonchi Neuro: Alert and responsive, No focal deficits noted Abdomen: Soft, Non-Tender Skin: No rashes noted on visualized skin Musculoskeletal: No Chest Wall Tenderness Extremities: No Clubbing, No Cyanosis, No Edema Results 07/19/19 08:58 07/19/19 08:58 Lab Results 07/19/19 07/19/19 08:58 08:58 WBC 5.4 Hgb 10.4 L Hct 31.1 L Plt Count 133 L Sodium 133 L Potassium 4.1 Chloride 105 Carbon Dioxide 23 BUN 37 H Creatinine 2.71 H Glucose 125 H Calcium 8.5 L - Imaging and Cardiology Echo: report reviewed - EKG Interpretation EKG results cardiology: personally reviewed Consult Discharge Plan - Plan Referrals: NONE,PCP [Primary Care Provider] - Cardiac Rehab - Cardiac Rehab Cardiac Rehab: Phase I consult completed. Patient was educated on why Cardiac Rehabilitation is beneficial to his/her health. Participating in a cardiac rehabilitation can improve the following: strengthen your heart, improve ejection fraction, weight reduction, decrease cholesterol levels, lower blood pressure, lower blood sugar, improve stamina, and enhance self-image. If he/she has any questions, they were instructed to call [facility] at [phone].
--- NOTE | 2019-07-19 09:59 | Internal Med Progress Note ---
Hospitalist Progress Note - Encounter Date of Encounter: 07/19/19 Time of Encounter: 09:56 - Subjective Interval History: ICU Summary 07/16-07/19 This is a 58-year-old male with a history of heavy alcohol, heavy tobacco abuse. He should not presented to the hospital on July 16 after 3 days of feeling ill, was diagnosed with an acute ST elevation ID and complete heart block. Patient underwent urgent cardiac catheterization which showed a 100% occluded RCA, no intervention was performed. EF was 45% with inferior wall hypokinesis. Patient had a right femoral transvenous pacemaker placed as well, and he remains in the ICU until it is changed over to a permanent pacemaker on Saturday, July 20. Patient was also noted on admission to be in acute renal failure with a creatinine of 3.95. He has no prior history of kidney disease. Prior to admission patient had several days of decreased appetite, nausea, occasional loose stool. He also continue to take up to 3 Aleive a day for his chronic back pain. Patient's post operative course has been complicated by flash pulmonary edema likely related to IV fluids for his renal failure. Given 2 doses of Lasix 80 mg IV, and BiPAP and this is now resolved. A repeat echo was done which showed no change in his EF (45-50%, moderate to severe pulmonary hypertension with mild to moderate tricuspid regurgitation), no acute valvular abnormalities. He is still on supplemental oxygen, and we holding off on further diuresis. Patient has diuresed over 2.5 L since admission, and his creatinine is improving, today it is 2.7. Nephrology has been following. Patient also had an unexplained drop in his hemoglobin from a level of 13.8- 10.4, but he is not showing any signs to suggest retroperitoneal bleed. He did have a renal ultrasound which showed no obstruction, kidneys appeared normal. Our concern for retroperitoneal bleed is much less likely, but if he were to drop his hemoglobin further then would get a stat noncontrast CT of abdomen and pelvis. This morning patient states he is feeling well. He denies any shortness of breath. He denies any nausea or vomiting. No chest pain. No fevers or chills. He is awaiting pacemaker placement on Saturday. Other than that mentioned above a 10 point review of systems is negative Patient can be transferred out of ICU once pacemaker is placed. On reviewing his echo I certainly have concerns for further evaluation of his moderate to severe pulmonary hypertension. He will certainly need an outpatient sleep study. He needs to stop smoking. As he still remains on oxygen, I suspect he has COPD (tobacco and occup lung exposures) as well. He will also need PFTs with DLCO and lung volumes as an outpatient. - Exam Vitals: Temp Pulse Resp BP Pulse Ox 98.7 F 65 20 104/64 93 07/19/19 07:00 07/19/19 09:40 07/19/19 09:40 07/19/19 09:40 07/19/19 09:40 Exam: General: Awake alert and oriented 3 no acute distress, pleasant and conversant Skin warm and dry OP moist Neck supple Lungs bibasilar crackles, exp wheeze right midlung field, Heart is tachycardic with regular rhythm Abdomen is soft nontender nondistended with normoactive bowel sounds Ext tr edema Pacemaker right groin clean incision, mild edema Neuro Nonfocal - Summary of Assessment and Plan Summary of Assessment and Plan: Inferior wall ST elevation ID -Management as per cardiology -Patient is on statin-lipitor 80 mg, aspirin 81 mg, Plavix 75 mg -Lipids Chol 144 LDL 71 HDL 31 TG 210 Chest Pain -likely due to IWMI -Well's score argues against PE Complete heart block -s/p temp pacemaker -Management as per cardiology -likely ppm on Friday 07/20 HOWARD Likely HTN, possibly related to ischemia, possible component of NSAID nephr opathy He also has since received a contrast load for his heart catheterization Will avoid nephrotoxins, continue IV fluids, closely monitor electrolytes He is making urine, monitor for development of cardiorenal syndrome Renal ultrasound nml appearing kidneys, no obx 07/19: Creatinine is improved to 2.7. His urine output is improved. Continue to avoid nephrotoxins and monitor. Nephrology input is appreciated. Acute Systolic CHF -sx improved -Holding on further Lasix due to acute kidney injury -Continue beta meek, Imdur Tobacco abuse -assessment counselor -?underlying COPD, pt has mild hypoxemia this AM. -bronchodilators added -future outpatient PFT's with DLCO and Lung Volumes Acute hypoxemic respiratory failure -Strongly suspect patient has underlying COPD from prolonged tobacco abuse, as well as occupational lung exposure -There was a component of congestive heart failure as well contribute to his respiratory failure -Patient may need home oxygen temporarily Pulmonary HTN -As mentioned above, will need further outpatient investigations to include a sleep study, as well as lung function tests -recc outpt pulm medicine follow up Hypothyroidism -will start synthroid 50 mcg po daily, repeat TSH in 4 weeks Back Pain -Likely from laying in bed, however I will check a CBC to monitor for any blood loss, rule out a retroperitoneal bleed Chronic daily alcohol use -Last drink was 4 nights ago, no withdrawal symptoms -I will allow patient to drink alcohol does develop any signs of withdrawal 07/18: No sx of withdrawl. ETOH counseling Hyperkalemia -resolved, monitor DVT Prophy -SCD's - Time Spent with Patient Total time spent is greater than 50% in coordination of care (as documented) at patient's floor/unit and/or counseling patient: Internal Medicine: Result - Labs CBC & Chem 7: 07/19/19 08:58 07/19/19 08:58 Labs: Short CBC 07/19/19 Range/Units 08:58 WBC 5.4 (4.3-11.1) K/mcL Hgb 10.4 L (12.9-16.9) g/dL Hct 31.1 L (37.5-50.1) % Plt Count 133 L (140-400) K/mcL BMP 07/19/19 08:58 Sodium 133 L Potassium 4.1 Chloride 105 Carbon Dioxide 23 BUN 37 H Creatinine 2.71 H Glucose 125 H Calcium 8.5 L Consult Discharge Plan - Plan Referrals: NONE,PCP [Primary Care Provider] -
[2019-07-19 11:45] LABS: INR 1.2; Prothrombin Time 13.3 Seconds (9.4-12.1)
[2019-07-19 17:09] LABS: CK-BB (CK isoenzymes) 0 % (0-0); CK-MB (CK isoenzymes) 0 % (0-4); CK-MM (CK-isoenzymes) 100 % (96-100)
[2019-07-20 04:51] LABS: Calcium 8.9 mg/dL (8.6-10.3); Potassium 4.3 mEq/L (3.5-5.1)
[2019-07-20] MEDS: Ipratropium/Albuterol Neb 3 ML IH SCH ×4 (04:58→22:14)
[2019-07-20] MEDS: *HR* HYDROcodone/Acet 5/325 mg TABLET PO PRN (07:45)
[2019-07-20] MEDS: Isosorbide MONOnitrate (24 HR) 30 MG TAB.ER.24H PO SCH (07:46)
[2019-07-20] MEDS: Aspirin 81 MG TAB.CHEW PO SCH (07:46)
--- NOTE | 2019-07-20 07:50 | Internal Med Progress Note ---
<Joe Fields S - Last Filed: 07/20/19 09:13> Hospitalist Progress Note - Encounter Date of Encounter: 07/20/19 Time of Encounter: 07:50 - Subjective Interval History: Mr. Sheridan is a 58-year-old male with history of heavy alcohol and heavy tobacco use who was found to have STEMI with third-degree block on 07/16 with concurrent HOWARD. Venous pacemaker was put in through the R femoral vein and he was admitted to the ICU. He reports feeling fine today, states he is much better than last time I saw him, which was on Saturday. States he is "ready to go," and is impatiently waiting to have his pacemaker put in today. He denies any concerning signs or symptoms, other than mild discomfort in his chest, which she says is unchanged. Denies any difficulty breathing, headache, dizziness, nausea, vomiting, diarrhea, constipation, numbness/tingling/weakness anywhere, lower extremity edema. Expecting transfer out of ICU after pacemaker placement, medical workup while in the ICU shows need for significant outpatient follow-up, including evaluation of pulmonary hypertension, sleep study, smoking cessation, PFTs - Exam Vitals: Temp Pulse Resp BP Pulse Ox 98.2 F 60 22 108/65 92 07/20/19 07:00 07/20/19 05:59 07/20/19 05:59 07/20/19 05:59 07/20/19 05:59 Exam: General: Awake alert and oriented 3 no acute distress, pleasant and conversant Skin warm and dry OP moist Neck supple Lungs CTAB, no wheeze, rales, ronchi Heart is regular rate and rhythm Abdomen is soft nontender nondistended with normoactive bowel sounds Ext no LE edema, erythea, edema surrounding an ittitated wound in the R AC where his old IV was placed. Pacemaker right groin clean incision, mild edema Neuro Nonfocal - Assessment and Plan (1) Complete heart block Current Visit: Yes Status: Acute Assessment and Plan: s/p temp pacemaker no reports of palpitations * Management as per cardiology * Pacer Placement scheduled today (2) Acute systolic CHF (congestive heart failure) Current Visit: Yes Status: Acute Assessment and Plan: sx improved Holding on further Lasix due to acute kidney injury * Continue beta meek, * Continue Imdur (3) Acute hypoxemic respiratory failure Current Visit: Yes Status: Resolved Assessment and Plan: Strongly suspect patient has underlying COPD from prolonged tobacco abuse, as well as occupational lung exposure There was a component of congestive heart failure as well contributing to his respiratory failure * Patient may need home oxygen temporarily (4) Pulmonary hypertension Current Visit: Yes Status: Suspected Assessment and Plan: * As mentioned above, will need further outpatient investigations to include a sleep study, as well as lung function tests * recc outpt pulm medicine follow up (5) Hyperkalemia Current Visit: Yes Status: Resolved Assessment and Plan: Resolved * continue to monitor (6) Acute kidney injury Current Visit: Yes Status: Acute Assessment and Plan: Likely HTN, possibly related to ischemia, possible component of NSAID nephropathy He also has since received a contrast load for his heart catheterization He is making urine, monitor for development of cardiorenal syndrome Renal ultrasound nml appearing kidneys, no obx Creatinine improved to 2.31 * Avoid nephrotoxins * Continue IV fluids * Continue to monitor electrolytes * Appreciate nephrology input (7) STEMI (ST elevation myocardial infarction) Current Visit: Yes Status: Acute Assessment and Plan: Patient is on statin-lipitor 80 mg, aspirin 81 mg, Plavix 75 mg Lipids Chol 144 LDL 71 HDL 31 TG 210 * Management as per cardiology * Statin, ASA, Plavix DVT Prophylaxis: SCD's - Time Spent with Patient Total time spent is greater than 50% in coordination of care (as documented) at patient's floor/unit and/or counseling patient: Internal Medicine: Result - Labs CBC & Chem 7: 07/19/19 08:58 07/20/19 03:54 Labs: Short CBC 07/19/19 Range/Units 08:58 WBC 5.4 (4.3-11.1) K/mcL Hgb 10.4 L (12.9-16.9) g/dL Hct 31.1 L (37.5-50.1) % Plt Count 133 L (140-400) K/mcL BMP 07/19/19 07/20/19 08:58 03:54 Sodium 133 L 135 L Potassium 4.1 4.3 Chloride 105 103 Carbon Dioxide 23 24 BUN 37 H 34 H Creatinine 2.71 H 2.31 H Glucose 125 H 98 Calcium 8.5 L 8.9 - ABG Interpretation ABG results: PT/INR, D-dimer PT 13.3 Seconds (9.4-12.1) H 07/19/19 11:17 Consult Discharge Plan - Plan Referrals: NONE,PCP [Primary Care Provider] - <ShahnazMoreno - Last Filed: 07/20/19 09:48> Hospitalist Progress Note - Encounter Date of Encounter: 07/20/19 Time of Encounter: 08:40 - Exam Vitals: Temp Pulse Resp BP Pulse Ox 98.2 F 60 13 115/71 90 07/20/19 07:00 07/20/19 09:00 07/20/19 09:00 07/20/19 09:00 07/20/19 09:00 Exam: General: NAD; resting in bed without complaints HEENT: no icterus, neck supple Chest: CTA B, coarse breath sounds; diminished BS bases; regular paced rhythm Abdomen: soft, NT, ND, + BS Ext: trace - 1 + edema; equal pulses Neuro: A&Ox3, no focal deficits Skin: warm and dry Psych: normal mood and affect - Time Spent with Patient Total time spent is greater than 50% in coordination of care (as documented) at patient's floor/unit and/or counseling patient: 25 - 35 minutes Plan of Care Discussed with: other (Dr. Fields, MDR team) Internal Medicine: Result - Labs CBC & Chem 7: 07/19/19 08:58 07/20/19 03:54 Labs: BMP 07/20/19 03:54 Sodium 135 L Potassium 4.3 Chloride 103 Carbon Dioxide 24 BUN 34 H Creatinine 2.31 H Glucose 98 Calcium 8.9 - ABG Interpretation ABG results: PT/INR, D-dimer PT 13.3 Seconds (9.4-12.1) H 07/19/19 11:17 - Attending Attestation I discussed the patient case with Dr. Fields and the MDR team. I then saw and examined patient independently as well. I reviewed chart and cardiology notes. Patient is tentatively scheduled for permanent pacemaker placement today. He is pacemaker dependent. He denies any chest pain, shortness of breath, or any difficulty breathing at this time. He exhibits no signs of alcohol withdrawal at this present time. Patient will need ongoing follow-up with cardiology as well as primary care. He will need to abstain from alcohol and quit smoking as well. Hemodynamically, patient is stable at this present time. After his pacemaker placement, he can likely transition out of the ICU. As noted above per Dr. Fields, he will need ongoing follow-up and management of his CHF, coronary disease, workup for pulmonary hypertension, and abstinence and counseling for his alcohol and tobacco abuse. Other than my comments above and documented exam findings, I agree with Dr. Fields assessment and plan. <Joe Fields S - Last Filed: 07/20/19 09:13> (7) STEMI (ST elevation myocardial infarction) Qualifiers: Involved coronary artery: right coronary artery Qualified Code(s): I21.11 - ST elevation (STEMI) myocardial infarction involving right coronary artery
[2019-07-20] MEDS ORDERED: Neosporin OINT 1 APPL PACKET TP ONE (07:55)
[2019-07-20] MEDS ORDERED: CeFAZolin Syr 2,000MG/20 ML 2,000 MG/20 ML SYRINGE IVPB ONE (08:00)
[2019-07-20 10:11] LABS: CK Total (Ck Isoenzymes) 239 U/L (20-200)
--- NOTE | 2019-07-20 10:25 | Electrocardiograph Report ---
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
--- NOTE | 2019-07-20 10:26 | Electrocardiograph Report ---
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
[2019-07-20] MEDS ORDERED: *HR* LORazepam 2 MG/ML VIAL IVP PRN ×2 (11:26→18:08)
[2019-07-20] MEDS ORDERED: Renal Vitamin 1 CAP CAPSULE PO SCH (11:30)
[2019-07-20] MEDS ORDERED: Thiamine (B-1) 100 MG TABLET PO SCH (11:30)
--- NOTE | 2019-07-20 11:55 | Nephrology Progress Note ---
Date of Encounter: 07/20/19 Time of Encounter: 11:51 - Assessment and Plan (1) Acute kidney injury Current Visit: Yes Status: Acute Renal function is somewhat improved today, serum creatinine 2.31, GFR 29, BUN 34 Baseline serum creatinine unknown Suspect secondary to history of NSAID use, hemodynamic instability during STEMI Appropriate urine output Uric acid elevated Retroperitoneal ultrasound was unremarkable Complement C3, C4 within normal limits Hepatitis panel nonreactive ZAKIA, and Lambda Light Chains, pANCA, cANCA, protein electrophoresis remain pending Declines T pallidum or HIV testing No indication for renal replacement therapy Continue strict I's and O's Avoid nephrotoxins and renally dose medications Avoid diuresis as able Subjective Principal diagnosis: Inferior STEMI, CHB Interval history: Patient seen and examined at bedside today. Renal function has improved. He states that he is doing well and his shortness of breath have significantly improved. He is planning on going for permanent pacemaker later on today. He is no longer requiring oxygen supplementation. He does admit to some pleuritic pain now which has been improving over the past few days. He continues to have appropriate urine output. He denies nausea, vomiting, fever, chills, abdominal pain, dysuria, pruritus. He denies any edema. Objective - Vital Signs Vital signs: Vital Signs Temp Pulse Resp BP Pulse Ox 07/20/19 11:27 98.3 F 07/20/19 11:17 17 90 07/20/19 11:00 60 17 100/54 97 07/20/19 10:00 60 17 112/71 88 07/20/19 09:00 60 13 115/71 90 07/20/19 08:00 60 20 121/70 92 07/20/19 07:00 98.2 F 60 17 120/85 94 07/20/19 05:59 60 22 108/65 92 07/20/19 05:00 60 18 108/65 98 07/20/19 04:00 60 18 114/74 97 07/20/19 03:00 98.4 F 60 20 116/73 94 07/20/19 02:00 60 16 101/56 88 07/20/19 01:00 60 18 108/70 90 07/20/19 00:00 60 20 109/68 94 07/19/19 23:00 99.7 F H 60 22 122/68 94 07/19/19 22:11 16 94 07/19/19 22:00 60 22 115/70 100 07/19/19 21:00 60 23 121/72 87 07/19/19 20:00 60 16 129/71 92 07/19/19 19:00 98.8 F 60 22 117/73 92 07/19/19 18:39 65 22 124/74 95 07/19/19 17:21 60 24 115/64 96 07/19/19 16:03 16 90 07/19/19 16:00 60 22 109/60 93 07/19/19 15:45 60 07/19/19 15:38 60 21 133/99 92 07/19/19 15:18 98.8 F 07/19/19 14:00 60 22 119/69 96 07/19/19 13:00 60 21 126/69 91 07/19/19 12:46 60 24 117/62 91 07/19/19 12:10 90 Intake and Output 07/19/19 07/20/19 07/20/19 23:59 07:59 15:59 Intake Total 830 / 1170 Output Total 300 / 1900 875 / 1075 200 / 1075 Balance 530 / -730 -875 / -1075 -200 / -1075 Intake: Oral 830 / 1170 Output: Urine 300 / 1600 875 / 1075 200 / 1075 Other: Meal Dinner Percent of Meal Consumed 25% # Voids 1 Blood Glucose* 106 - General Appearance Exam: Gen: Vitals noted. No acute distress. AAOx3, resting comfortably on room air HEENT: PERRL/EOMI, oropharynx clear, MMM, Normocephalic, atraumatic Cardiac: RRR, no murmur, +S1/S2, radial and dorsal pedis pulses 3+ and symmetrical Pulmonary: Faint rhonchi, no wheezes or rales, equal chest expansion Abdomen: soft, nontender, BS noted, no guarding, no rebound. Extremities: no BLE edema, no calf tenderness, no cyanosis or clubbing. Femoral line on the right, no erythema, drainage or signs of infection Neuro: A&Ox3, moves all extremities, no focal deficits Psych: Appropriate mood and behavior - Lab 07/19/19 08:58 07/20/19 03:54 Most recent lab results 07/20/19 03:54 Calcium 8.9 Consult Discharge Plan - Plan Referrals: NONE,PCP [Primary Care Provider] -
[2019-07-20] MEDS ORDERED: 0.9 % Sodium Chloride 500 ML ONE (14:58)
[2019-07-20] MEDS ORDERED: *HR* FentaNYL (PF) 100 MCG/2 ML VIAL ONE (14:58)
[2019-07-20] MEDS ORDERED: *HR* Midazolam HCl 2 MG/2 ML VIAL ONE ×2 (14:58→15:40)
[2019-07-20] MEDS ORDERED: Water for inj. (sterile) 10 ML ONE (14:58)
[2019-07-20] MEDS ORDERED: 0.9 % Sodium Chloride 1,000 ML ONE (14:59)
--- NOTE | 2019-07-20 15:18 | Pre-Sedation Evaluation ---
Pre-sedation evaluation - Pre-sedation checklist Date of procedure: 07/16/19 Procedure: urgent cath Recent Vitals: Last Vital Signs Temp 98.3 F 07/20/19 11:27 Pulse 60 07/20/19 14:00 Resp 24 07/20/19 14:00 BP 130/78 07/20/19 14:00 Pulse Ox 90 07/20/19 14:00 H&P (including ROS) documented in medical record: Yes Previous reaction to sedatives/anesthetics: No Dietary Status: NPO 6 hours prior to procedure Airway Assessment: Patient can open mouth completely, TMJ function normal, Micrognathia (under-bite, receding chin) absent Dentition: No loose teeth or bridges Possible difficult airway: No ASA Classification *see protocol: CLASS II-Mild systemic disease, CLASS III- Severe systemic disease Plan of Care: Pt appropriate candidate for procedure/moderate/conscious sedation, Risks/benefits of procedure/sedation discussed w/ patient/family
--- NOTE | 2019-07-20 17:56 | Electrocardiograph Report ---
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
[2019-07-20] MEDS ORDERED: Acetaminophen 325 MG TABLET PO PRN (18:08)
[2019-07-20 18:28] LABS: Kappa Qnt Free Light Chains 3.92 mg/dL (0.33-1.94); Lambda Qnt Free Light Chains 2.26 mg/dL (0.57-2.63)
[2019-07-20] MEDS ORDERED: *HR* HYDROcodone/Acet 5/325 mg TABLET PO PRN (20:53)
[2019-07-21] MEDS: Ipratropium/Albuterol Neb 3 ML IH SCH ×2 (03:54→10:29)
[2019-07-21 06:48] LABS: Basophils % 0.5 %; Eosinophils # 0.1 K/mcL (0.0-0.6); Eosinophils % 1.1 %; Hematocrit 33.5 % (37.5-50.1); Immature Granulocytes % 0.7 % (0-4); Immature Platelets 4.6 % (1.1-6.1); Lymphocytes # 1.1 K/mcL (0.6-4.6); Lymphocytes % 20.7 %; Mean Corpuscular HGB Conc 32.8 g/dL (31.6-35.5); Mean Corpuscular Hemoglobin 35.6 pg (28.0-33.3); Mean Corpuscular Volume 108.4 fL (83.0-100.0); Monocytes # 0.7 K/mcL (0.0-1.3); Monocytes % 12.5 %; Neutrophils # 3.5 K/mcL (1.6-8.9); Platelet Count 205 K/mcL (140-400); Red Blood Count 3.09 M/mcL (4.19-5.50); Red Cell Distribution Width 12.8 % (11.5-14.5); Segmented Neutrophils % 64.5 %; White Blood Count 5.5 K/mcL (4.3-11.1)
[2019-07-21 07:01] LABS: Calcium 8.7 mg/dL (8.6-10.3); Potassium 4.3 mEq/L (3.5-5.1)
[2019-07-21 07:08] LABS: Platelet Estimate Normal (Normal)
[2019-07-21 07:12] VITALS: BP 138/78
[2019-07-21] MEDS ORDERED: Aspirin 81 MG TAB.CHEW PO SCH (09:00)
[2019-07-21] MEDS ORDERED: Thiamine (B-1) 100 MG TABLET PO SCH (09:00)
[2019-07-21] MEDS ORDERED: Isosorbide MONOnitrate (24 HR) 30 MG TAB.ER.24H PO SCH (09:00)
[2019-07-21] MEDS ORDERED: Renal Vitamin 1 CAP CAPSULE PO SCH (09:00)
--- NOTE | 2019-07-21 10:56 | Cardiology Progress Note ---
Date of Encounter: 07/21/19 Time of Encounter: 09:30 Assessment and Plan (1) STEMI (ST elevation myocardial infarction) Current Visit: Yes Status: Acute Per reports, late presenting inferior STEMI. LHC demonstrated occluded RCA, medical therapy recommended. 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 Mild CMP per reports, EF 45-50%. Remains chest pain free. Recommend continue aspirin/plavix/statin/imdur therapy. Now with PPM can start low dose bb. Risk factor modification encouraged. Smoking cessation. Declines NRT. Cardiology will sign off. Out-pt f/u will be coordinated. CXR pending for PPM. If normal he can be discharged from cardiology standpoint. Qualifiers: Involved coronary artery: right coronary artery Qualified Code(s): I21.11 - ST elevation (STEMI) myocardial infarction involving right coronary artery (2) Complete heart block Current Visit: Yes Status: Acute Complete heart block in the setting of an inferior MD. Temporary pacemaker in place on admission. Potassium improved and thyroid tretment started without improvement in rhythm. PPM placed 07/20/19. No complication from procedure. Post day device check and CXR pending. Out patient f/u in one week for wound check, one month for device check, three months with Dr. Moya. (3) Acute renal failure Current Visit: Yes Status: Acute Kidney function improved. Avoid nephrotoxins. Qualifiers: Acute renal failure type: unspecified Qualified Code(s): N17.9 - Acute kidney failure, unspecified (4) Acute respiratory failure Current Visit: Yes Status: Acute Pulmonary edema during stay likely secondary to MD, acute mild systolic DChf, and HOWARD with dominique procedure fluids. Now resolved. Low sodium diet. Qualifiers: Respiratory failure complication: hypoxia Qualified Code(s): J96.01 - Acute respiratory failure with hypoxia Discussion w patient/family: The assessment and plan as outlined above was discussed with the patient and/or family members who expressed understanding and agreement. All questions were answered. Thank you for involving us in the care of your patient. Please call with any questions. Subjective Principal diagnosis: Inferior STEMI, CHB Interval history: Mr. Sheridan is sitting on side of bed. States he is a little weak. Denies chest pain. Objective Vital Signs, Last 4 Hours Temp Pulse Resp BP Pulse Ox 07/21/19 10:31 18 91 07/21/19 07:10 98.4 F 86 18 138/78 90 General: Conversant, No Apparent Distress HEENT: Atraumatic, Normocephaly, Mucus Membranes Moist Neck: No JVD, Normal carotid pulses Cardiac: Reg Rate and Rhythm, Normal S1 and S2, No Murmur Lungs: Normal Breath Sounds, No Wheeze, Rales, Rhonchi Neuro: Alert and responsive, No focal deficits noted Abdomen: Soft, Non-Tender Skin: No rashes noted on visualized skin Musculoskeletal: No Chest Wall Tenderness Extremities: No Clubbing, No Cyanosis, No Edema, Normal Pulses, Other (Right groin ecchymossis, mild, no hematoma) Results 07/21/19 05:49 07/21/19 05:49 Lab Results 07/21/19 07/21/19 05:49 05:49 WBC 5.5 Hgb 11.0 L Hct 33.5 L Plt Count 205 D Sodium 136 Potassium 4.3 Chloride 102 Carbon Dioxide 24 BUN 29 H Creatinine 1.76 H Glucose 104 Calcium 8.7 - Imaging and Cardiology Chest Xray: report reviewed Echo: report reviewed Cardiac cath: report reviewed Consult Discharge Plan - Plan Additional Instructions: ACTIVITY: Moderate activity for the next 7 days. No lifting more than 5 pounds (gallon of milk) for 4-6 weeks. Avoid lifting your arm on the same side as the device for 4 weeks. BATHING /SHOWERING: Do not remove the large bandage over the site for 2 days. Do not allow the device to get wet for 7-10 days. You may bathe/shower, but do not use soap and water on the site. When bathing, keep the site dry by covering with Saran wrap or a towel. WOUND CARE: The white steri-strips will start to peel away and come off after 14 days, or your doctor will remove them after [address] into or on top of the incision. Do not use cotton swabs. Do not use any antibiotic ointment or Vitamin E on the site. REMINDERS: You may use electrical devices, such as, microwaves, hair dryers, electric ra zors, electric blankets, etc. as long as they are in good condition and kept 6-8 inches away from the device. It is recommended to use cell phones on the opposite side of your device. Notify security personnel at the airport that you have a device before you go through airport security screening. When at places with security monitors, such as a grocery store, do not linger near these monitors. It is fine to walk past them in a normal manner. Refer to your owners manual for more specific directions. CARRY YOUR PACEMAKER/ICD CARD WITH YOU AT ALL TIMES Return to work as instructed per physician Resume driving as instructed per physician Keep all scheduled follow up appointments Resume medications as instructed Contact [facility] ( ) if: You develop excessive bleeding from insertion or wound site not controlled by applying pressure You develop a fever greater than 101 degrees Fahrenheit Your incision becomes reddened at or around the site Your incision develops yellowish or greenish drainage or development of white pimple-like bumps You experience excessive pain You develop swelling in your ankles You experience muscle switching You develop excessive hiccupping If you experience chest pain, shortness of breath, dizziness, or extreme tiredness, stop the activity and rest. Please notify [facility] office if you experience any of these symptoms and they are not relieved by rest please call 911! Referrals: NONE,PCP [Primary Care Provider] - Cardiac Rehab - Cardiac Rehab Cardiac Rehab: Phase I consult completed. Patient was educated on why Cardiac Rehabilitation is beneficial to his/her health. Participating in a cardiac rehabilitation can improve the following: strengthen your heart, improve ejection fraction, weight reduction, decrease cholesterol levels, lower blood pressure, lower blood sugar, improve stamina, and enhance self-image. If he/she has any questions, they were instructed to call [facility] at [phone].
--- NOTE | 2019-07-21 11:10 | Nephrology Progress Note ---
Date of Encounter: 07/21/19 Time of Encounter: 09:35 - Assessment and Plan (1) Acute kidney injury Status: Acute He continues to demonstrate improved SCr and is not uremic on exam. Upon admission, his high dose outpt NSAIDs were stopped plus his hemodynamics have improved s/p pacer and now his SCr is nicely improving. I will politely sign-off at this point, but please feel free to call or page me with any renal questions. I recommend checking a BMP about 1 week after D/C and to follow up with Nephrology in about 2-5 weeks. Thank you. Subjective Principal diagnosis: Inferior STEMI, CHB Interval history: The patient was seen and examined and his new room, as he is transferred out of the ICU. No family members are present at the time of my interview and exam. He did not affirm chest pain, shortness of breath, nausea, vomiting, or diarrhea. He expressed hope to be released today. Objective - Vital Signs Vital signs: Vital Signs Temp Pulse Pulse Resp BP Pulse Ox 07/21/19 10:31 18 91 07/21/19 07:10 98.4 F 86 18 138/78 90 07/21/19 03:58 98.4 F 80 18 124/79 90 07/21/19 03:56 16 98 07/21/19 00:38 98.6 F 80 18 116/75 95 07/20/19 22:14 18 91 07/20/19 21:34 98.3 F 89 20 137/84 94 07/20/19 20:55 98.9 F 07/20/19 19:05 87 07/20/19 19:00 85 20 128/74 95 07/20/19 18:50 85 07/20/19 18:45 88 20 134/82 95 07/20/19 18:35 89 07/20/19 18:20 88 07/20/19 18:15 84 18 131/82 92 07/20/19 18:05 87 07/20/19 18:00 82 89 19 131/73 95 07/20/19 17:55 87 07/20/19 17:50 88 07/20/19 17:45 88 84 20 132/78 96 07/20/19 17:30 88 85 21 126/73 97 07/20/19 17:15 88 21 129/75 93 07/20/19 17:00 88 88 19 127/84 91 07/20/19 16:45 88 85 19 134/79 88 07/20/19 16:42 98.3 F 87 23 142/78 92 07/20/19 16:40 98 82 19 150/87 97 07/20/19 16:35 84 07/20/19 16:30 96 87 24 150/87 84 07/20/19 16:00 87 07/20/19 14:00 60 24 130/78 90 07/20/19 13:00 60 22 128/79 93 07/20/19 12:00 60 20 93/56 94 07/20/19 11:27 98.3 F 07/20/19 11:17 17 90 Intake and Output 07/20/19 07/21/19 07/21/19 23:59 07:59 15:59 Intake Total 360 / 360 Output Total 1525 / 2600 400 / 400 Balance -1525 / -2600 -400 / -40 360 / -40 Intake: Oral 360 / 360 Output: Urine 1525 / 2600 400 / 400 Other: Meal Breakfast Percent of Meal Consumed 95% Weight 89.7 kg 89.7 kg Patient Weight 07/21/19 23:59 Weight 89.7 kg - General Appearance Exam: General appearance: Present: well-developed, well-nourished, appears started age EENT: Present: ATNC, PERRL, mucous membranes moist Neck: Present: no JVD, supple Respiratory: Present: clear (with faint rhonchi in the bibasilar region) Cardiology: Present: no edema, regular rate, regular rhythm, normal S1, normal S2 Gastrointestinal: Present: normoactive bowel sounds, no tenderness, no guarding Integumentary: Present: no rash, warm and dry Neurologic: Present: no focal deficit, no asterixis, alert and oriented x3 Musculoskeletal: Present: no deformities, no erythema, no cyanosis Psychiatric: Present: mood/affect appropriate, cooperative - Lab 07/21/19 05:49 07/21/19 05:49 Most recent lab results 07/21/19 05:49 Calcium 8.7 Consult Discharge Plan - Plan Instructions: Metoprolol (By mouth), Levothyroxine (By mouth), Cyclobenzaprine (By mouth), Aspirin (By mouth), Isosorbide Mononitrate (By mouth), Atorvastatin (By mouth), Clopidogrel (By mouth), Heart Failure (DC), Acute Kidney Injury (DC) Additional Instructions: ACTIVITY: Moderate activity for the next 7 days. No lifting more than 5 pounds (gallon of milk) for 4-6 weeks. Avoid lifting your arm on the same side as the device for 4 weeks. BATHING /SHOWERING: Do not remove the large bandage over the site for 2 days. Do not allow the device to get wet for 7-10 days. You may bathe/shower, but do not use soap and water on the site. When bathing, keep the site dry by covering with Saran wrap or a towel. WOUND CARE: The white steri-strips will start to peel away and come off after 14 days, or your doctor will remove them after [address] anything into or on top of the incision. Do not use cotton swabs. Do not use any antibiotic ointment or Vitamin E on the site. REMINDERS: You may use electrical devices, such as, microwaves, hair dryers, electric razors, electric blankets, etc. as long as they are in good condition and kept 6-8 inches away from the device. It is recommended to use cell phones on the opposite side of your device. Notify security personnel at the airport that you have a device before you go through airport security screening. When at places with security monitors, such as a grocery store, do not linger near these monitors. It is fine to walk past them in a normal manner. Refer to your owners manual for more specific directions. CARRY YOUR PACEMAKER/ICD CARD WITH YOU AT ALL TIMES Return to work as instructed per physician Resume driving as instructed per physician Keep all scheduled follow up appointments Resume medications as instructed Contact [facility] ( ) if: You develop excessive bleeding from insertion or wound site not controlled by applying pressure You develop a fever greater than 101 degrees Fahrenheit Your incision becomes reddened at or around the site Your incision develops yellowish or greenish drainage or development of white pimple-like bumps You experience excessive pain You develop swelling in your ankles You experience muscle switching You develop excessive hiccupping If you experience chest pain, shortness of breath, dizziness, or extreme tiredness, stop the activity and rest. Please notify [facility] office if you experience any of these symptoms and they are not relieved by rest please call 911! Referrals: [facility] [Other] (Referral made physicians office will call the patient to schedule a follow-up appointment. ) Wilberto Gutierrez CNP [Advanced Practice Nurse] - Chris Londono DO [Partnered Physician] - (Referral made, physicians office will call the patient to schedule a follow-up appointment.) Prescriptions: Aspirin 81 mg PO DAILY #60 tab.chew Prescription Printed Cyclobenzaprine [Flexeril] 10 mg PO TID #20 tablet Prescription Printed Isosorbide MONOnitrate (24 HR) [Imdur] 30 mg PO DAILY #90 tab.er.24h Prescription Printed Atorvastatin [Lipitor] 80 mg PO HS #90 tablet Prescription Printed Metoprolol [Lopressor] 25 mg PO BID #90 tablet Prescription Printed Clopidogrel [Plavix] 75 mg PO DAILY #60 tablet Prescription Printed Levothyroxine [Synthroid] 50 mcg PO 0630 #60 tablet Prescription Printed
[2019-07-21 11:33] LABS: Serine Protease-3 Antibody 0 AU/mL (0-19)
[2019-07-21 11:34] LABS: ANA IgG by ELISA NONE DETECTED (None Detected)
--- NOTE | 2019-07-21 12:48 | Discharge Summary ---
Date of Encounter: 07/21/19 Time of Encounter: 10:00 - Discharge Diagnosis (1) Complete heart block Priority: Primary Status: Acute Assessment and Plan: 58 year old male who has a past medical history significant for heavy tobacco abuse, 2 packs per day for the last 40 years, and daily alcohol use of 58 ounce glasses of wine daily. History of withdrawals. Patient was admitted for evaluation of chest pain for the last several days, described as pleuritic in nature, left side of his chest radiating into the jaw. He also had numerous episodes of lightheadedness and passing out since that time. Pt was dosed with inferior wall ST elevation CO, with a troponin of 28.97. He also was noted to have complete heart block. Patient underwent left heart catheterization which showed a 100% distally occluded RCA with no collaterals, mid disease in the left coronary artery, EF of 45% with inferior wall hypokinesis. Recommendation was for medical management of his coronary artery disease, he also had a temporary pacemaker placed through his right groin. Patient was subsequently transferred to ICU for further monitoring and management. Patient's post operative course was complicated byacute hypoxic resp failure with flash pulmonary edema likely related to IV fluids for his renal failure. Given 2 doses of Lasix 80 mg IV, and BiPAP and this is now resolved. A repeat echo was done which showed no change in his EF (45-50%, moderate to severe pulmonary hypertension with mild to moderate tricuspid regurgitation), no acute valvular abnormalities. He is still on supplemental oxygen, and we holding off on further diuresis. Patient has diuresed over 2.5 L since admission, and his creatinine is improving, today it is 2.7. Nephrology has been following. He had a permanent pacemaker place on 07/20. Device check post procedure the following day was WNL and CXR showed no pneumothorax. He was discharged on cardiac meds and will follow up outpatient. 35 minutes was spent discharging this patient (2) STEMI (ST elevation myocardial infarction) Priority: Primary Status: Acute Qualifiers: Involved coronary artery: right coronary artery Qualified Code(s): I21.11 - ST elevation (STEMI) myocardial infarction involving right coronary artery (3) Acute kidney injury Priority: Primary Status: Acute (4) Acute systolic CHF (congestive heart failure) Priority: Primary Status: Acute (5) Acute hypoxemic respiratory failure Priority: Primary Status: Resolved Hospital course: Mr. Sheridan is a 58 year old male - Time Spent with Patient Total time spent providing and/or coordinating discharge services: - Discharge Medications Prescriptions: New Clopidogrel [Plavix] 75 mg PO DAILY #60 tablet Atorvastatin [Lipitor] 80 mg PO HS #90 tablet Isosorbide MONOnitrate (24 HR) [Imdur] 30 mg PO DAILY #90 tab.er.24h Metoprolol [Lopressor] 25 mg PO BID #90 tablet Cyclobenzaprine [Flexeril] 10 mg PO TID #20 tablet Aspirin 81 mg PO DAILY #60 tab.chew Levothyroxine [Synthroid] 50 mcg PO 0630 #60 tablet Home Medications: Aspirin 81 mg PO DAILY #60 tab.chew 07/21/19 [Rx] Atorvastatin [Lipitor] 80 mg PO HS #90 tablet 07/21/19 [Rx] Clopidogrel [Plavix] 75 mg PO DAILY #60 tablet 07/21/19 [Rx] Cyclobenzaprine [Flexeril] 10 mg PO TID #20 tablet 07/21/19 [Rx] Isosorbide MONOnitrate (24 HR) [Imdur] 30 mg PO DAILY #90 tab.er.24h 07/21/19 [Rx] Levothyroxine [Synthroid] 50 mcg PO 0630 #60 tablet 07/21/19 [Rx] Metoprolol [Lopressor] 25 mg PO BID #90 tablet 07/21/19 [Rx] Allergies/Adverse Reactions: Allergy/AdvReac Type Severity Reaction Status Date / Time No Known Allergies Allergy Verified 07/16/19 22:26 Date of admission: 07/16/19 10:22 Primary care physician: PCP NONE Consults: 07/16/19 11:14 Consult to Cardiac Rehabilitation-Phase1 [CONS] Routine Comment: Reason for Consult: post op diagnostic cath Call Completed: Yes 07/16/19 12:17 Consult to Electrophysiology (EP) [CONS] Routine Consulting Provider: Electrophysiology [facility] Reason for Consult: Pacemaker, 3rd degree heart block Call Completed: Yes 07/17/19 11:18 Consult to Nephrology [CONS] Routine Consulting Provider: Kidney Tisha/SERGIO/SALUD/PATTI Reason for Consult: suspect ATN, now with CHF after IVF, recent STEMI Time Notified: 11:18 Call Completed: Yes - Constitutional Vitals: Temp Pulse Resp BP Pulse Ox 98.4 F 86 18 138/78 91 07/21/19 07:10 07/21/19 07:10 07/21/19 10:31 07/21/19 07:10 07/21/19 10:31 General appearance: Present: A&O X 3, pleasant, no acute distress (Patient has a temporary pacemaker inserted into his right groin) Exam: General: NAD; resting in bed without complaints HEENT: no icterus, neck supple Chest: CTA B, coarse breath sounds; diminished BS bases; regular paced rhythm Abdomen: soft, NT, ND, + BS Ext: trace - 1 + edema; equal pulses Neuro: A&Ox3, no focal deficits Skin: warm and dry Psych: normal mood and affect - Patient Status Disposition: Home, Self-Care Condition: Good - Discharge Instructions Instructions: Metoprolol (By mouth), Levothyroxine (By mouth), Cyclobenzaprine (By mouth), Aspirin (By mouth), Isosorbide Mononitrate (By mouth), Atorvastatin (By mouth), Clopidogrel (By mouth), Heart Failure (DC), Acute Kidney Injury (DC) Follow Up With: [facility] [Other] (Referral made physicians office will call the patient to schedule a follow-up appointment. ) Wilberto Gutierrez CNP [Advanced Practice Nurse] - Chris Londono DO [Partnered Physician] - (Referral made, physicians office will call the patient to schedule a follow-up appointment.) Forms: Work/School Release Additional Instructions: ACTIVITY: Moderate activity for the next 7 days. No lifting more than 5 pounds (gallon of milk) for 4-6 weeks. Avoid lifting your arm on the same side as the device for 4 weeks. BATHING /SHOWERING: Do not remove the large bandage over the site for 2 days. Do not allow the device to get wet for 7-10 days. You may bathe/shower, but do not use soap and water on the site. When bathing, keep the site dry by covering with Saran wrap or a towel. WOUND CARE: The white steri-strips will start to peel away and come off after 14 days, or your doctor will remove them after [address] anything into or on top of the incision. Do not use cotton swabs. Do not use any antibiotic ointment or Vitamin E on the site. REMINDERS: You may use electrical devices, such as, microwaves, hair dryers, electric razors, electric blankets, etc. as long as they are in good condition and kept 6-8 inches away from the device. It is recommended to use cell phones on the opposite side of your device. Notify security personnel at the airport that you have a device before you go through airport security screening. When at places with security monitors, such as a grocery store, do not linger near these monitors. It is fine to walk past them in a normal manner. Refer to your owners manual for more specific directions. CARRY YOUR PACEMAKER/ICD CARD WITH YOU AT ALL TIMES Return to work as instructed per physician Resume driving as instructed per physician Keep all scheduled follow up appointments Resume medications as instructed Contact [facility] ( ) if: You develop excessive bleeding from insertion or wound site not controlled by applying pressure You develop a fever greater than 101 degrees Fahrenheit Your incision becomes reddened at or around the site Your incision develops yellowish or greenish drainage or development of white pimple-like bumps You experience excessive pain You develop swelling in your ankles You experience muscle switching You develop excessive hiccupping If you experience chest pain, shortness of breath, dizziness, or extreme tiredness, stop the activity and rest. Please notify [facility] office if you experience any of these symptoms and they are not relieved by rest please call 911!
[2019-07-21 21:02] LABS: Alpha 2 Globulin (PEP) 0.99 g/dL (0.48-1.05); Beta Globulin (PEP) 0.73 g/dL (0.48-1.10)
[2019-07-22 09:38] LABS: IFE Reflexed IFE Done; Immunoglobulin A 233 mg/dL (68-408); Immunoglobulin G 696 mg/dL (768-1632); Immunoglobulin M 72 mg/dL (35-263)
== END 2019-07-21 15:20 | disposition home or self-care (01) | DRG 242 ==
LOC: EMEROOARM 07:44 → ICNU 10:22 → 2NENU 07-20 21:17
PROVIDERS: ADMIT Internal Medicine Pulmonary Disease; ATTEND Internal Medicine